=== PATIENT | male | born 1990 | race Caucasian/White ===

== ENCOUNTER 2022-05-29 20:41 | Emergency (ER) | payer BC, SELFPAY ==
[2022-05-29 20:42] VITALS: BP 149/100; PULSE 93; RESP 18; TEMP 35.8; O2SAT 97; BMI 30.1
--- NOTE | 2022-05-29 20:53 | CT_ITS ---
INDICATION: abdominal pain EXAMINATION: CT ABDOMEN AND PELVIS WITH CONTRAST - CT Abdomen And Pelvis W/ Contrast Injection TECHNIQUE: Helically acquired images were obtained of the abdomen and pelvis following IV contrast. A radiation dose optimization technique was used for this scan. IV Contrast dosage and agent: 100 cc Isovue-370 Oral contrast: None. COMPARISON: None. FINDINGS: LOWER CHEST: Lung bases are clear. No cardiomegaly or pericardial effusion. LIVER: Small cyst right lobe. No focal mass. GALLBLADDER AND BILIARY TREE: No calcified gallstones. No gallbladder distension or wall edema. No intra- or extrahepatic biliary ductal dilation. PANCREAS: No focal cystic or solid mass. SPLEEN: Normal size without focal cystic or solid mass. ADRENAL GLANDS: No nodules. KIDNEYS AND URETERS: Normal renal size and position. No hydronephrosis. PERITONEUM: No ascites or free air. BOWEL: Normal appendix. No stomach or bowel distension. No focal inflammatory change. LYMPH NODES: Scattered, moderately enlarged mid abdominal mesenteric lymph nodes. VESSELS: Aorta is non-dilated. URINARY BLADDER: Unremarkable. REPRODUCTIVE ORGANS: No pelvic masses. ABDOMINAL WALL: Small fat-containing umbilical hernia. BONES: Unremarkable. CT/Abdomen/Pelvis W IV Cont ONLY IMPRESSION: Scattered enlarged mesenteric lymph nodes, in the appropriate clinical setting these may indicate mesenteric adenitis. Otherwise no acute findings in the abdomen or pelvis. Electronically Signed: Juvenal Mendoza MD at 21:43 EST ,
--- NOTE | 2022-05-29 20:57 | ED.VIS.GI ---
HPI HPI - GI History of Present Illness Chief Complaint: Abd Pain Narrative Narrative: 32-year-old male presenting with periumbilical pain. He states this started around Thanksgiving and he has been a little queasy since then. He has not been nauseous however. He has been eating and drinking normally. He reports normal urine and stool. Is not had a fever. Today he notes that his discomfort was a little bit worse. It still around the umbilicus. He thought maybe he just had gas buildup and did some exercises. He then stretched. He states the pain is still there. Patient states that he looked up his symptoms on [facility] and is concerned he has appendicitis. PFSH PFSH Home Medications ascorbic acid (vitamin C) 25 mg tablet mg PO 05/29/22 [History Last Taken Unknown] cholecalciferol (vitamin D3) 125 mcg (5,000 unit) tablet (Vitamin D3) 125 mcg PO DAILY 05/29/22 [History Last Taken Unknown] naproxen 500 mg tablet (Naprosyn) 500 mg PO BID PRN pain #20 tabs 05/29/22 [Rx Last Taken Unknown] zinc 50 mg capsule 50 mg PO DAILY 05/29/22 [History Last Taken Unknown] Allergy/AdvReac Type Severity Reaction Status Date / Time remdesivir AdvReac Other Verified 05/29/22 20:42 Social History Smoking Status: Never smoker ROS ROS ED Constitutional Constitutional ED: Denies chills or fever(s) ENT ENT ED: Denies rhinorrhea or sore throat Cardiovascular Cardiovascular: Denies chest pain or palpitations Respiratory/Chest Respiratory/Chest: Denies cough or dyspnea Gastrointestinal Gastrointestinal: Reports abdominal pain; Denies constipation, diarrhea or nausea Genitourinary Genitourinary ED: Denies dysuria or hematuria Musculoskeletal Musculoskeletal: Denies arthralgias Integumentary Denies abscess or Abrasions Neurologic Neurologic: Denies headache(s) or paresthesias Psychiatric Psychiatric: Denies anxiety or depression EXAM Physical Exam Const Vital Signs: 05/29/22 20:42 Temperature 96.4 F L Temperature Source Temporal Pulse Rate 93 Respiratory Rate 18 Blood Pressure 149/100 H Blood Pressure Mean 116 Pulse Ox 97 Oxygen Delivery Method Room Air Positive well nourished General Appearance ED: NAD HEENT Reports moist mucous membranes Eyes PERRL and EOMs intact bilaterally Resp normal respiratory effort and clear to auscultation bilaterally Auscultation: Negative for rales, rhonchi or wheezes Cardio regular rate and regular rhythm GI Palpation: tender periumbilical Back/Spine no CVA tenderness Neuro CN's II-XII intact bilaterally and moves all extremities Sensorium / Orientation: alert Psych mental status grossly normal Skin no wounds MDM MDM MDM Narrative Medical decision making narrative: Patient presenting with abdominal pain around his umbilicus. This has been ongoing since . He is not had a fever. He states he is queasy but is not nauseous. No vomiting. No constipation or diarrhea. He is concerned for appendicitis. I obtained blood work and his CBC and CMP are normal. Lipase within normal limits. CT of the abdomen pelvis shows mesenteric adenitis. Patient is having relatively mild symptoms. I think he stable for discharge home. We will give him Naprosyn here. Follow-up was provided. Impression: 1. Abdominal pain 2. Mesenteric adenitis Lab Data Attestation: I reviewed the patient's lab results. Labs: Laboratory Results - last 24 hr 05/29/22 05/29/22 21:00 21:00 WBC 9.0 RBC 5.37 Hgb 16.0 Hct 45.4 MCV 84.5 MCH 29.8 MCHC 35.2 RDW Std Deviation 35.6 RDW Coeff of Demarcus 11.7 Plt Count 305 MPV 8.9 Immature Gran % (Auto) 0.200 Neut % (Auto) 60.1 Lymph % (Auto) 29.9 Lyman % (Auto) 8.6 Eos % (Auto) 0.8 Baso % (Auto) 0.4 Absolute Neuts (auto) 5.4 Absolute Lymphs (auto) 2.70 Nucleated RBC % 0 Sodium 141 Potassium 3.7 Chloride 106 Carbon Dioxide 30.0 Anion Gap 5 BUN 13 Creatinine 1.04 Estim Creat Clear Calc 109.85 Est GFR (MDRD) Af Amer 105 Est GFR (MDRD) Non-Af 87 BUN/Creatinine Ratio 12.5 Glucose 102 Calcium 9.7 Total Bilirubin 0.60 AST 19 ALT 55 Alkaline Phosphatase 81 Total Protein 7.8 Albumin 4.4 Globulin 3.4 Albumin/Globulin Ratio 1.3 Lipase 106 Radiography Diagnostic Testing: Clinical Impression(s) from Imaging Studies Abdomen/Pelvis CT 12/03/22 20:53 IMPRESSION: Scattered enlarged mesenteric lymph nodes, in the appropriate clinical setting these may indicate mesenteric adenitis. Otherwise no acute findings in the abdomen or pelvis. Electronically Signed: Juvenal Mendoza MD at 21:43 EST , Discharge Plan Triage Chief Complaint: Abd Pain Other Complaint: Nausea/Vomiting ED Provider: Abhishek Engle Dx/Rx/DC Orders Instructions: ED Adenitis, Mesenteric Prescriptions: New naproxen [Naprosyn] 500 mg tablet 500 mg PO BID PRN (Reason: pain) Qty: 20 0RF No Action Vitamin C 25 mg Tablet PO zinc 50 mg Capsule 50 mg PO DAILY cholecalciferol (vitamin D3) [Vitamin D3] 125 mcg (5,000 unit) Tablet 125 mcg PO DAILY Primary Care Provider: Care Physician,No Primary Referrals: Fast,Daja, DO [Med Staff - Traffic Monitor Specialist] - 3-5 Days NOT,DEFINED [Non-Staff] - Disposition Disposition: Home, Self Care
[2022-05-29 21:05] LABS: Absolute Neutrophil Count 5.4 X10^3/uL (2.0-7.7); Basophil# 0.04 X10^3/uL; Basophil% 0.4 % (0-1); Eosinophil# 0.07 X10^3/uL; Eosinophils% 0.8 % (0-5); Hematocrit 45.4 % (40-54); Lymphocyte % 29.9 % (19-41); Mean Corp Hgb Conc 35.2 g/dL (32-36); Mean Corpuscular Hgb 29.8 pg (27.0-32.0); Mean Corpuscular Volume 84.5 fL (80-94); Mean Platelet Vol. 8.9 fl (6.2-12.0); Monocyte# 0.78 X10^3/uL; Monocyte% 8.6 % (0-10); NRBC Flagged by Analyzer 0 % (0-5); Neutrophil # 5.41 X10^3/uL (2.7-7.7); Neutrophil % 60.1 % (47-70); Platelet Count 305 K/mm3 (150-450); RBC Distribution Width CV 11.7 % (11.6-14.6); RBC Distribution Width SD 35.6 fl (35.1-43.9); Red Blood Count 5.37 M/mm3 (4.6-6.2)
[2022-05-29 21:25] LABS: ALB/GLOB Ratio 1.3 RATIO (0.9-2.4); AST(SGOT) 19 U/L (15-37); Alanine Aminotransfer ALT/SGPT 55 U/L (16-61); Albumin, Serum 4.4 g/dL (3.2-5.0); Alkaline Phosphatase 81 U/L (45-117); Anion Gap 5 (5-15); BUN 13 mg/dL (7-18); BUN/Creat Ratio 12.5 RATIO (10-20); Calcium,Total 9.7 mg/dL (8.5-10.1); Chloride 106 mmol/L (98-107); Creatinine, Serum 1.04 mg/dL (0.70-1.30); EST Glomerular Filtration Rate 87 mL/min (>60); Est Glom Filt Rate - Afr Amer 105 mL/min (>60); Estimated Creatinine Clearance 109.85 ml/min; Globulin 3.4 g/dL (2.2-4.2); Glucose 102 mg/dL (74-106); Lipase 106 U/L (73-393); Potassium 3.7 mmol/L (3.5-5.1); Protein, Total 7.8 g/dL (6.4-8.2); Sodium Level 141 mmol/L (136-145)
== END 2022-05-29 22:40 | disposition home or self-care (01) ==
PROVIDERS: Emergency Provider Student in an Organized Health Care Education/Training Program; Visit Provider Student in an Organized Health Care Education/Training Program
DX: I88.0 Nonspecific mesenteric lymphadenitis (principal); R11.2 Nausea with vomiting, unspecified; R10.9 Unspecified abdominal pain
CPT/HCPCS: 74177; 80053; 83690; 85025; 99283; A4216

== ENCOUNTER 2023-03-10 11:15 | Emergency (ER) | payer BC, SELFPAY ==
[2023-03-10 11:17] VITALS: BP 162/96; PULSE 68; RESP 14; TEMP 35.9; O2SAT 93; BMI 32.1
--- NOTE | 2023-03-10 11:42 | CT_ITS ---
STUDY: CT ABDOMEN AND PELVIS WITHOUT CONTRAST REASON FOR EXAM: Male, 33 years old. Umbilical pain and nausea. RADIATION DOSAGE (If Supplied By Facility): CTDIvol = ( 14.45 ) mGy, DLP = ( 780.04 ) mGycm TECHNIQUE: Transaxial images were obtained from the dome of the diaphragm to the symphysis pubis without oral contrast, and without intravenous contrast. Sagittal and coronal images were reconstructed. Individualized dose optimization techniques were used for this CT. COMPARISON: Comparison is made with prior study May 29, 2022. FINDINGS: The visualized lung bases are unremarkable. The visualized portions of the heart are within normal limits. There is decreased attenuation of the liver consistent with steatosis. Stable 1.1 cm cyst in the region of the shilpa hepatis. Normal gallbladder and extrahepatic biliary system. Normal spleen. Normal pancreas. Normal bilateral adrenal glands. Normal right kidney. Normal left kidney. Normal visualized stomach. Normal small intestine. Normal colon. The appendix is visualized and appears normal. Normal abdominal aorta. Normal inferior vena cava. Normal retroperitoneum. Stable scattered small mesenteric lymph nodes. Normal urinary bladder. Normal abdominal wall. Normal osseous structures. CT/Abdomen/Pelvis without Cont IMPRESSION: Mild fatty infiltration of liver with a small cyst in the right hepatic lobe. Electronically Signed: Ector Morales MD at 12:11 EDT ,
--- NOTE | 2023-03-10 12:18 | EX.ED.DYSGE1 ---
HPI History of Present Illness Chief Complaint: Abd Pain Narrative Narrative: Patient presents with few month history of abdominal wall pain. He feels a little knot just above his umbilicus. No lower abdominal pain. No nausea vomiting fevers or chills. No urinary symptoms. PFSH PFSH Medical History no medical history Home Medications ascorbic acid (vitamin C) 25 mg tablet mg PO 05/29/22 [History Last Taken Unknown] cholecalciferol (vitamin D3) 125 mcg (5,000 unit) tablet (Vitamin D3) 125 mcg PO DAILY 05/29/22 [History Last Taken Unknown] naproxen 500 mg tablet (Naprosyn) 500 mg PO BID PRN pain #20 tabs 05/29/22 [Rx Last Taken Unknown] zinc 50 mg capsule 50 mg PO DAILY 05/29/22 [History Last Taken Unknown] Allergy/AdvReac Type Severity Reaction Status Date / Time remdesivir AdvReac Other Verified 03/10/23 11:16 Family History no significant family his Surgical History no surgical history Social History Smoking Status: Never smoker ROS ROS ED ROS Narrative Review of systems: General: No fever Cardiovascular: No chest pain Respiratory: No shortness of breath or cough Gastrointestinal: In HPI Genitourinary: No dysuria Musculoskeletal: Denies myalgias no difficulty with ambulation EXAM Physical Exam Narrative Exam Narrative: Physical exam General: Well nourished, Well developed, No Acute Distress Cardiovascular: Regular rate, Regular rhythm Respiratory: No distress, CTA bilaterally Abdomen: Soft, initially pinched the upper part of the umbilicus and the rest of the skin I can elicit his pain, he tells me he feels a knot in that region I cannot actually palpate any kind of umbilical hernia or periumbilical hernia or any nodule. Otherwise soft and nontender throughout the other parts of the abdomen with no guarding or rebound Back: Nontender, Normal Inspection. Negative for: CVA tenderness Const Vital Signs: 03/10/23 11:17 Temperature 96.6 F L Temperature Source Temporal Pulse Rate 68 Respiratory Rate 14 Blood Pressure 162/96 H Blood Pressure Mean 118 Pulse Ox 93 Oxygen Delivery Method Room Air MDM MDM MDM Narrative Medical decision making narrative: Initial worried was for hernia, was able to palpate it so was worried about it small 1, this is unfounded on CT. CT does show a liver cyst, this can be followed up outpatient. There is no signs of appendicitis, gallbladder disease, or any kind of colitis or bowel disease. Patient is reassured. I discharged him in stable condition. Radiography Diagnostic Testing: Clinical Impression(s) from Imaging Studies Abdomen/Pelvis CT 03/10/23 11:42 IMPRESSION: Mild fatty infiltration of liver with a small cyst in the right hepatic lobe. Electronically Signed: Ector Morales MD at 12:11 EDT , Discharge Plan Triage Chief Complaint: Abd Pain ED Provider: Andre Leslie Dx/Rx/DC Orders Clinical Impression: Abdominal wall pain, Abdominal pain Instructions: ED Pain, Acute, Uncertain Cause Prescriptions: No Action Vitamin C 25 mg Tablet PO zinc 50 mg Capsule 50 mg PO DAILY cholecalciferol (vitamin D3) [Vitamin D3] 125 mcg (5,000 unit) Tablet 125 mcg PO DAILY naproxen [Naprosyn] 500 mg tablet 500 mg PO BID PRN (Reason: pain) Qty: 20 0RF Primary Care Provider: Care Physician,No Primary Referrals: Care Physician,No Primary [Primary Care Provider] - 3-5 Days Disposition Disposition: Home, Self Care
--- NOTE | 2023-03-10 12:19 | CM.ED ---
Social Work Note Referral Source: case find Referral Reason: no PCP SW met with patient and introduced herself and role as [facility] Director Economic. Patient was seated on hospital bed and agreeable to speak with SW with guest present. SW inquired about patient's insurance and current PCP. Patient verified insurance and reports recently establishing with a PCP with their first appointment scheduled for April. Patient accepted a list of local PCPs in network with patient's insurance and accepting new patients to review. Patient voiced no other needs at this time. SW remains available if needs arise. Kalyn Stubbs MSW, [facility]
== END 2023-03-10 12:39 | disposition home or self-care (01) ==
PROVIDERS: Emergency Provider Emergency Medicine; Visit Provider Emergency Medicine
DX: R10.9 Unspecified abdominal pain (principal); K76.89 Other specified diseases of liver
CPT/HCPCS: 74176; 99282

== ENCOUNTER 2023-03-31 19:33 | Emergency (ER) | payer BC, SELFPAY ==
[2023-03-31 19:34] VITALS: BP 135/90; PULSE 76; RESP 18; TEMP 36.7; O2SAT 99; BMI 32.4
[2023-03-31 19:59] LABS: Absolute Lymphocyte Count 2.56 X10^3/uL (0.83-4.51); Absolute Neutrophil Count 4.4 X10^3/uL (2.0-7.7); Basophil# 0.03 X10^3/uL; Basophil% 0.4 % (0-1); Eosinophil# 0.15 X10^3/uL; Eosinophils% 1.9 % (0-5); Hematocrit 49.9 % (40-54); Hemoglobin 17.3 g/dL (13.0-16.5); Lymphocyte # 2.56 X10^3/ul (0.83-4.51); Lymphocyte % 32.7 % (19-41); Mean Corp Hgb Conc 34.7 g/dL (32-36); Mean Corpuscular Hgb 29.5 pg (27.0-32.0); Mean Corpuscular Volume 85.2 fL (80-94); Mean Platelet Vol. 9.4 fl (6.2-12.0); Monocyte# 0.63 X10^3/uL; Monocyte% 8.1 % (0-10); NRBC Flagged by Analyzer 0 % (0-5); Neutrophil # 4.43 X10^3/uL (2.7-7.7); Neutrophil % 56.6 % (47-70); Platelet Count 316 K/mm3 (150-450); RBC Distribution Width CV 11.7 % (11.6-14.6); RBC Distribution Width SD 35.9 fl (35.1-43.9); Red Blood Count 5.86 M/mm3 (4.6-6.2); White Blood Count 7.8 K/mm3 (4.4-11.0)
[2023-03-31 20:21] LABS: ALB/GLOB Ratio 1.2 RATIO (0.9-2.4); AST(SGOT) 27 U/L (15-37); Alanine Aminotransfer ALT/SGPT 66 U/L (16-61); Albumin, Serum 4.4 g/dL (3.2-5.0); Alkaline Phosphatase 88 U/L (45-117); Anion Gap 6 (5-15); BUN 15 mg/dL (7-18); Calcium,Total 9.1 mg/dL (8.5-10.1); Chloride 105 mmol/L (98-107); Creatinine, Serum 0.94 mg/dL (0.70-1.30); EST Glomerular Filtration Rate 97 mL/min (>60); Est Glom Filt Rate - Afr Amer 118 mL/min (>60); Estimated Creatinine Clearance 113.25 ml/min; Globulin 3.6 g/dL (2.2-4.2); Glucose 94 mg/dL (74-106); Potassium 3.9 mmol/L (3.5-5.1); Sodium Level 137 mmol/L (136-145)
--- NOTE | 2023-03-31 20:24 | ED.VIS.GI ---
HPI HPI - GI History of Present Illness Chief Complaint: Abd Pain Detail of Chief Complaint: Abdominal pain Informant: patient Narrative Narrative: Patient presents with abdominal pain over 6 weeks now. Patient has been seen for this in the emergency department and had a CT scan in March 10 did not show any acute disease process. Patient complains of pain in the right upper quadrant and sometimes in the right lower quadrant. 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 Patient now complaining of pain worse with movement and with taking deep breath. He denies any chest pain. No history of PE or DVT. He denies any blood in his stool or black tarry stool. He has had no fever. He denies vomiting. PFSH PFSH Medical History no medical history Home Medications NK 03/31/23 [History Last Taken Unknown] Allergy/AdvReac Type Severity Reaction Status Date / Time remdesivir AdvReac Other Verified 03/31/23 19:36 Family History no significant family his Surgical History no surgical history Social History Smoking Status: Never smoker ROS ROS ED Review of Systems ROS Unobtainable: other Constitutional Constitutional ED: Reports lethargy; Denies chills, fever(s), sweats or weight loss Eyes Eyes: Denies blurry vision, change in vision or diplopia ENT ENT ED: Denies rhinorrhea or sore throat Cardiovascular Cardiovascular: Denies chest pain, orthopnea or racing heartbeat Respiratory/Chest Respiratory/Chest: Denies cough, dyspnea, dyspnea on exertion, orthopnea or sputum Gastrointestinal Gastrointestinal: Reports abdominal pain; Denies diarrhea, nausea or vomiting Genitourinary Genitourinary ED: Denies dysuria, hematuria or urinary frequency Musculoskeletal Musculoskeletal: Denies arthralgias, back pain, myalgias or neck pain Integumentary Denies abscess, Abrasions or rash Neurologic Neurologic: Denies headache(s) or weakness Psychiatric Psychiatric: Denies anxiety, depression or suicidal thoughts Endocrine Endocrinology: Denies polydipsia, polyphagia or polyuria Hematologic/Lymphatic Hematologic/Lymphatic: Denies easy bleeding, easy bruising or lymphadenopathy Allergic/Immunologic Allergic/Immunologic ED: Denies mouth swelling, tongue swelling or urticaria EXAM Physical Exam Const Vital Signs: 03/31/23 19:34 03/31/23 22:19 Temperature 98.1 F Temperature Source Temporal Pulse Rate 76 Respiratory Rate 18 16 Blood Pressure 135/90 H Blood Pressure Mean 105 Pulse Ox 99 Oxygen Delivery Method Room Air Positive well nourished and well developed General Appearance ED: well developed and NAD HEENT Reports TM's clear and moist mucous membranes normocephalic and atraumatic; Negative for trauma or tenderness Tympanic Membrane ED: Yes TM's clear Eyes PERRL and EOMs intact bilaterally General Eye ED: Negative for pale conjunctiva or scleral icterus Neck no lymphadenopathy, supple and no JVD General: Negative for tenderness Chest Wall inspection of chest normal and palpation of chest normal Chest: Negative for tenderness Resp normal respiratory effort and clear to auscultation bilaterally Effort and Inspection: Negative for respiratory distress or pain with movement Auscultation: Negative for rhonchi, wheezes or diminished lung sounds Cardio regular rate, regular rhythm, S1 normal heart sound, S2 normal heart sound and no murmurs Peripheral Pulses: pulses 2+ throughout GI normal to inspection, nondistended, normoactive bowel sounds, soft to palpation, non-distended and no masses GI Narrative: Tenderness over right upper quadrant with some mild guarding. Negative Mitchell sign. There is no rebound, rigidity, or pedal signs. No significant tenderness of the right lower quadrant. No hernias or masses palpated. Back/Spine no CVA tenderness and no thoracic nor lumbar tenderness Extremity normal to inspection General Extremety ED: Negative for edema General Extremity: Negative for edema Neuro oriented x3, CN's II-XII intact bilaterally, no sensory deficits noted and gait normal Sensorium / Orientation: awake, alert, oriented to person, oriented to place and oriented to time Motor Exam: strength 5/5 throughout and strength abnormal Psych mental status grossly normal Skin no rashes or lesions noted and no wounds MDM MDM MDM Narrative Medical decision making narrative: Patient with ongoing abdominal pain for several months. Continues to have right upper quadrant pain. Will obtain basic labs and gallbladder ultrasound. Gallbladder ultrasound was read as normal. Lab work-up showed a normal white count of 7.8 with hemoglobin of 17 and platelet count of 316. D-dimer was less than 0.27. Chemistries unremarkable. LFTs showed a minimally elevated ALT of 66 with a normal alk phos of 88. Urinalysis was normal. CT scan of the abdomen pelvis ordered with IV contrast and p.o. contrast. Official results pending and care turned over to evening physician awaiting results. If CT is normal will refer patient to general surgery for follow-up. Patient might require further outpatient work-up such as possibly HIDA scan or EGD or colonoscopy. Lab Data Attestation: I reviewed the patient's lab results. Labs: Laboratory Results - last 24 hr 03/31/23 03/31/23 03/31/23 19:45 20:44 21:00 WBC 7.8 RBC 5.86 Hgb 17.3 H Hct 49.9 MCV 85.2 MCH 29.5 MCHC 34.7 RDW Std Deviation 35.9 RDW Coeff of Demarcus 11.7 Plt Count 316 MPV 9.4 Immature Gran % (Auto) 0.300 Neut % (Auto) 56.6 Lymph % (Auto) 32.7 Esmeralda % (Auto) 8.1 Eos % (Auto) 1.9 Baso % (Auto) 0.4 Absolute Neuts (auto) 4.4 Absolute Lymphs (auto) 2.56 Nucleated RBC % 0 D-Dimer Quant (PE/DVT) < 0.27 L Sodium 137 Potassium 3.9 Chloride 105 Carbon Dioxide 26.0 Anion Gap 6 BUN 15 Creatinine 0.94 Estim Creat Clear Calc 113.25 Est GFR (MDRD) Af Amer 118 Est GFR (MDRD) Non-Af 97 BUN/Creatinine Ratio 16.0 Glucose 94 Calcium 9.1 Total Bilirubin 0.70 AST 27 ALT 66 H Alkaline Phosphatase 88 Total Protein 8.0 Albumin 4.4 Globulin 3.6 Albumin/Globulin Ratio 1.2 Urine Color Yellow Urine Clarity Clear Urine pH 6.0 Ur Specific [place] 1.020 Urine Protein 15 H Urine Glucose (UA) Normal Urine Ketones 15 H Urine Occult Blood 10 H Urine Nitrite Negative Urine Bilirubin Negative Urine Urobilinogen Normal Ur Leukocyte Esterase Negative Urine RBC 0 SEEN Urine WBC 0-5 SEEN Ur Squamous Epith Cells 0 SEEN Urine Bacteria 0 SEEN Urine Mucus 0 SEEN Radiography Diagnostic Testing: Clinical Impression(s) from Imaging Studies Gallbladder Ultrasound 03/31/23 20:30 IMPRESSION: 1. No acute findings. 2. Hepatic steatosis. Electronically Signed: Courtney Mulligan MD at 21:55 EDT Reading Location ID and State: [id number] / Tel , Service support , Discharge Plan Triage Chief Complaint: Abd Pain ED Provider: Shalom Schroeder Dx/Rx/DC Orders Clinical Impression: Abdominal pain Instructions: ED Abdominal Pain Unkn Cause Male... Prescriptions: No Action NK Primary Care Provider: Care Physician,No Primary Referrals: Margarito Maciel MD [Med Staff - Active Staff] - 3-5 Days Care Physician,No Primary [Primary Care Provider] - Disposition Disposition: Home, Self Care
--- NOTE | 2023-03-31 20:30 | US_ITS ---
EXAM: US ABDOMEN LIMITED, RIGHT UPPER QUADRANT CLINICAL INDICATION: abdominal pain TECHNIQUE: Real-time ultrasound of the right upper quadrant with image documentation. COMPARISON: No relevant prior studies available. FINDINGS: LIVER: Liver is normal in size measuring 15.7 cm. Echogenicity is increased consistent with fatty infiltration. 1.2 x 0.9 cm hepatic cyst. No intrahepatic biliary ductal dilation. GALLBLADDER: Unremarkable. No shadowing gallstone. No gallbladder wall thickening is demonstrated. No pericholecystic fluid. Negative sonographic Mitchell''s sign. COMMON BILE DUCT: Unremarkable as visualized. The proximal common bile duct is within normal limits for the patient''s age. PANCREAS: Pancreas is not seen due to bowel gas. RIGHT KIDNEY: Right kidney is normal in size and echogenicity measuring 10.1 x 5.7 x 5.9 cm. Renal cortical thickness is normal. No mass, stone, or hydronephrosis. US/Gallbladder IMPRESSION: 1. No acute findings. 2. Hepatic steatosis. Electronically Signed: Courtney Mulligan MD at 21:55 EDT Reading Location ID and State: [id number] / Tel , Service support ,
[2023-03-31 21:15] LABS: Bacteria 0 SEEN /hpf (None Seen); Mucous, Urine 0 SEEN /hpf (<or=2+); Red Blood Cells-Urine 0 SEEN /hpf (0-5); Squamous Epithelial Cells - UA 0 SEEN /hpf (0-5)
[2023-03-31 21:21] LABS: Glucose, Dipstick Normal (Normal); Ketone-Dipstick 15 mg/dl (Negative); Leukocyte Esterase-Dipstick Negative /ul (Negative); Nitrite-Dipstick Negative (Negative); Occult Blood-Urine 10 /ul (Negative); Protein-Dipstick 15 mg/dl (Negative); Urine Bilirubin Dipstick Negative (Negative); Urine Urobilinogen Normal (Normal)
[2023-03-31 21:22] LABS: Color, Urine Yellow (Yellow); Urine Clarity Clear (Clear)
[2023-03-31 21:25] LABS: D-Dimer Quantitative (DVT/PE) < 0.27 FEU/ug/m (0.27-0.49)
[2023-03-31 21:41] LABS: White Blood Cells 0-5 SEEN /hpf (0-5)
--- NOTE | 2023-03-31 22:01 | CT_ITS ---
INDICATION: abdominal pain EXAMINATION: CT ABDOMEN AND PELVIS WITH CONTRAST - CT Abdomen And Pelvis W/ Contrast Injection TECHNIQUE: Helically acquired images were obtained of the abdomen and pelvis following IV contrast. A radiation dose optimization technique was used for this scan. IV Contrast dosage and agent: 100 cc Isovue-370 Oral contrast: Yes. COMPARISON: 03/10/2023 FINDINGS: LOWER CHEST: Lung bases are clear. No cardiomegaly or pericardial effusion. LIVER: Stable 11 mm cyst. No concerning focal mass. GALLBLADDER AND BILIARY TREE: No calcified gallstones. No gallbladder distension or wall edema. No intra- or extrahepatic biliary ductal dilation. PANCREAS: No focal cystic or solid mass. SPLEEN: Normal size without focal cystic or solid mass. ADRENAL GLANDS: No nodules. KIDNEYS AND URETERS: Normal renal size and position. No hydronephrosis. PERITONEUM: No ascites or free air. BOWEL: Normal appendix. No stomach or bowel distension. No focal inflammatory change. LYMPH NODES: Stable scattered minimally enlarged mesenteric lymph nodes. VESSELS: Aorta is non-dilated. URINARY BLADDER: Unremarkable. REPRODUCTIVE ORGANS: No pelvic masses. ABDOMINAL WALL: Small fat-containing umbilical hernia. BONES: Unremarkable. CT/Abdomen/Pelvis WITH Contrast IMPRESSION: No acute findings in the abdomen or pelvis. No significant change from the prior study. Electronically Signed: Juvenal Mendoza MD at 0:04 EDT ,
[2023-03-31 22:19] VITALS: RESP 16
== END 2023-04-01 00:58 | disposition home or self-care (01) ==
PROVIDERS: Emergency Provider Emergency Medicine; Visit Provider Emergency Medicine
DX: R10.11 Right upper quadrant pain (principal)
CPT/HCPCS: 74177; 76705; 80053; 81001; 85025; 85379; 99283; Q9967; A4216

== ENCOUNTER → 2023-04-06 | Outpatient (CLI) | payer BC, SELFPAY | END | disposition home or self-care (01) | LOC: LABSPEC 16:48 | PROVIDERS: Referring Provider Surgery; Visit Provider Surgery | DX: K42.9 Umbilical hernia without obstruction or gangrene (principal) | CPT/HCPCS: 87081 ==

== ENCOUNTER 2023-04-28 10:04 | Day surgery (SDC) | payer BC, SELFPAY ==
[2023-04-28] MEDS: Lactated Ringers 1,000 ML 15 ML IV (11:04)
[2023-04-28 11:06] VITALS: BP 155/85; PULSE 90; RESP 18; TEMP 36.3; O2SAT 100; BMI 30.5
[2023-04-28] MEDS: Cefazolin 2 GM in 0.9% Normal Saline (100mL Bag) 100 ML IV (11:30)
--- NOTE | 2023-04-28 11:36 | PCM.HP.BLA ---
History and Physical Date of Admission: 04/28/23 Date of Service: 04/06/23 MR#: [id number] Acct: [id number] Name: MEME PHAN Rep #: [id number] : 1990 Provider: Dr. Margarito Maciel MD Age/Sex: 33/M Location: [facility] Status: Signed Intake Vital Signs 03/31/2319:34 04/06/2310:39 Height 5 ft 10 in 5 ft 10 in Weight: 224 lb 8 oz BMI 32.2 BP 117/71 Blood Pressure Location Rt brachial Position Sitting Respiration 17 Pulse 64 Pulse Source Monitor Temp 97.3 F L Temp Source Temporal Pulse Oximetry (%) 97 Oxygen Delivery Method room air Intake Visit Reasons: [facility] ER 03/31 ABD PAIN Chief Complaint: w/c ER 03/31 abd pain Is patient in pain?: Yes Allergies remdesivir Adverse Reaction (Verified 04/06/23 10:40) Other Medications NK 03/31/23 [History Confirmed 04/06/23] [facility] Medical History no medical history Social History (Updated 04/06/23 @ 10:39 by Vivian Delacruz) Smoking Status: Never smoker alcohol intake: current alcohol intake frequency: holidays/special occasions only substance use type: does not use HPI HPI HPI: Patient is a 33-year-old male who presents for abdominal pain over the past 6 weeks. This finding was first noticed by patient. He has tried to keep a journal of his symptoms but has been frustrated with the lack of progress and coming today because after 2 separate ER visits and abdominal imaging. Patient is able to recall that in July 2021 he pulled something in his abdomen while working out and suspected this was simply a pulled muscle as he did not thereafter experience any bulging or ongoing pain. However, since that time he finds abdominal discomfort with certain activities and working out. He notes that his pain seems to radiate from his umbilicus up to his sternum. He initially believed that the pain was brought on by eating and so he has worked to eat light meals and cut out all sugar and caffeine. He states that the pain is currently bearable but feels as though something is still missing. He has noted some occasional associated nausea but no vomiting with the discomfort. He has not noticed any association with time of day. He reports that emergency medicine suggested he may have an umbilical hernia. He also offers that from the ages of [age] he dealt with a diagnosis of lactose intolerance but seem to grow out of this. He also reports a history of some reflux and heartburn in relation to coffee, but otherwise is not regularly bothered by the symptoms. He has no prior history of abdominal surgery. He does relate that he had some anesthesia problems during a wart removal in 2012 and woke up unable to breathe. This has been troubled for any potential surgical intervention he may require with his current complaint. 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 ROS General General: Yes weight change; No appetite, fatigue, colon cancer, breast cancer or weakness HEENT HEENT: No difficulty swallowing, eye injury, eye surgery, swollen glands or hoarseness Endo Endocrine: No thyroid disease, diabetes mellitus, thyroid cancer, Hair loss, heat intolerance or cold intolerance Skin Skin: No rash or changing moles Musc Musculoskeletal: No back problems, arthritis, rheumatoid arthritis, gout or joint pain Cardio Cardiovascular: No murmur, pacemaker, heart disease, atrial fibrillation, high blood pressure, heart attack, heart stent, palpitations, shortness of breat with exertion or chest pain Psych Psychiatric: No depression, anxiety or hearing voices Resp Respiratory: No shortness of breath, No sleep apnea, No cough, No COPD, No asthma, No emphysema and No wheezing Gastro Gastrointestinal: Yes abdominal pain, Yes nausea or vomiting, No diarrhea, No constipation, No blood in stool, No acid reflux, No hemorrhoids, No ulcers, No gallbladder problem and No black,tarry stools Garry Hematologic: No blood thinners, No blood disorders, No bleeding, No anemia and No blood clots Neuro Neurologic: No system reviewed and no additional complaints, except as documented, No as per HPI, No abnormal gait, No abnormal hearing, No abnormal movements, No abnormal speech, No behavioral changes, No burning sensations, No confusion, No convulsions, No disequilibrium, No dizziness, No localized weakness, No frequent falls, No headache(s), No lack of coordination, No loss of vision, No memory loss, No numbness, No other visual disturbances, No radicular pain, No restless legs, No sensory deficit, No syncope, No tingling, No tremor(s), No weakness and No other Exam Const General: cooperative, healthy appearing and anxious Orientation: alert, awake and oriented x3 Resp Effort & Inspection: normal respiratory effort GI Inspection: non-distended Other: Hirsute, overweight, no scars, soft, tender to palpation with approximately 1 cm fascial defect of the umbilicus containing fat. Patient reports that this tenderness does largely reproduce his prior symptoms. He otherwise is without tenderness to palpation over the 4 abdominal quadrants. Assessment and Plan Assessment and Plan (1) Umbilical hernia: Status: Acute Comment: This is a 33-year-old male who complains of approximately 6 weeks of abdominal pain radiating from his umbilicus to his sternum and laterally in both directions. He notes that his symptoms are definitely provoked with activity and seem to stem from some exertional activity undertaken July 2021 when he thought he pulled something. He has been to the emergency department on [address] imaging and gallbladder ultrasound were performed. His gallbladder ultrasound was normal without findings of gallstones, however, his CT of the abdomen and pelvis did demonstrate a small fat-containing umbilical hernia. This measures approximately 1.2 cm in diameter I suspect this latter issue is the cause of his complaints based on his history and the fact that his symptoms are largely reproduced on exam with palpation of this area. Therefore, it is my recommendation to proceed with an open umbilical hernia repair with mesh at his convenience. I do not find him to be at any significant risk for bowel incarceration or bowel obstruction given the small size of the fascial defect, but do believe that his omental fat is becoming intermittently incarcerated and causing pain with activity. I have stressed that he needs to find a time in his work schedule to dedicate 5 weeks to activity restrictions and at least 2 weeks to refrain from air travel on the account of his increased DVT risk postoperatively. Plan: ? Follow-up MRSA swab of the nares ? Arrange for operative date for open umbilical hernia repair with mesh at patient's convenience. Patient is aware that he should expect activity restrictions 5 weeks postop and no air travel x2 weeks postop I have examined the patient and the H&P has been reviewed. There are no clinical changes since date of exam. Patient confirms that he has had persistent diffuse tenderness about his umbilicus. We clarified details regarding his procedure as well as postprocedural lifting expectations. 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 Lastly we discussed wound care management with both patient and his father who is present in the room. Patient confirms that this has been an exhaustive review of the relevant information denies any further questions. Proceed to the operating room for open umbilical hernia repair with mesh as discussed above.
[2023-04-28] MEDS: Bupivacaine 0.5% PF 10 ML VIAL (12:28)
--- NOTE | 2023-04-28 12:45 | PCM.OPRPT ---
Report of Operation Date of Procedure: 04/28/23 Pre-Operative Diagnosis: Umbilical hernia Post-Operative Diagnosis: Umbilical hernia containing incarcerated fat Surgery/Procedure Performed:: Open umbilical hernia repair with mesh placement Description of Surgical Findings:: ? Fascial defect of 1 cm Surgeon: Margarito Maciel manager product support: Shasta Marquez Type of Anesthesia: General/Supplemental Anesthesiologist: Ferny Wilson Specimen's removed: None Description of Procedure: After appropriate identification in the preoperative holding area patient was brought to the operating room where he was positioned supine on the operating room table. Preoperative antibiotics were being administered during this time. Patient was then induced with a general anesthetic and is abdomen was prepped and draped in usual sterile fashion. A formal timeout was conducted to confirm both patient and the procedure amongst those present. Observing the patient's prior scars, I elected to use a infraumbilical incision line and performed a local block along this tissue using quarter percent Marcaine. This incision was made sharply and deepened down through the dermis and subcu tissue with use of electrocautery. I used a hemostat to bluntly dissect out and encircled the umbilical stalk and took great care to avoid injury to the overlying skin. Gradually this was freed from the underlying scar and soft tissue attachments until we were able to visualize patient's fascial defect. This measured 1 cm x 1 cm round. As the fascia was completely cleared of overlying attachments, I also tried to clear any adherent omentum to the inner diameter of this fascial defect using sharp dissection. Through this dissection, I circumferentially freed the hernia contents from the edge of the fascia. For the closure of this fascial defect, I elected to incorporate a mesh closure. A 4.[address] hernia patch was used for this purpose. The mesh was placed through the hernia opening in a folded conformation and then allowed to assume a flat position under the fascia. The tails of the mesh were split and were tacked in the fascia laterally using 2-0 Prolene. Then the fascial defect was closed transversely with 0 Ethibond sutures in an interrupted fashion using a [id number] technique. This resulted in a nice closure of the fascial defects with a mesh underlay. The skin of the umbilical stalk was tacked down to the fascia with a interrupted 3-0 Vicryl. The same 3-0 Vicryl was used to perform a number of interrupted sutures dermis to reapproximate the wound and close down some of the space from our dissection down to the fascia. Lastly, a 4-0 Monocryl was used to close the skin in a running subcuticular technique. Steri's were applied and a rolled Telfa was placed into the umbilical concavity. A OpSite dressing was placed atop this and the area around the Telfa roll was evacuated to provide a bit of a compressive dressing. This concluded the formal portion of the case and the patient was allowed to awaken from general anesthetic. He was taken to PACU for ongoing recovery. Complications None
--- NOTE | 2023-04-28 12:51 | DCINST_ITS ---
Discharge Instructions Diet Discharge Diet: No restrictions Activity May shower in (days): 2 Lifting Restrictions: No lifting greater than 10 pounds x 5 weeks postop Dressing / Incision Call your doctor if your incision/area has: Sudden Increased Bleeding, Increased Pain/ Swelling, Increased Redness, Foul Smelling Discharge and Swelling at the incision site Call your doctor if you observe: Fever of 101 or Higher Remove Dressing in: 5 days Cleanse incision/area with: Soap & Water Follow Up Care Please Follow Up With: Margarito Maciel MD When: 10 to 14 days postop Test Results: Test results from this visit will be discussed in further detail at your follow- up appointment, if applicable. Discharge Plan Admission Primary Reason for Your Visit: umbilical hernia repair Attending Provider: Margarito Maciel Primary Care Provider: Care Physician,Devika Primary Discharge Orders/Prescriptions Prescriptions: New oxycodone 5 mg tablet 5 mg PO Q6H PRN (Reason: pain) 3 Days Qty: 10 0RF Referrals / Follow Up: Care Physician,No Primary [Primary Care Provider] - Disposition Disposition (needs filled in before D/C Order can be placed): Home, Self Care
[2023-04-28 12:52] VITALS: BP 100/51; BP 155/85; PULSE 69; RESP 16; TEMP 36.1; O2SAT 99
[2023-04-28 13:00] VITALS: BP 155/85; BP 97/54; PULSE 65; RESP 16; O2SAT 99
[2023-04-28 13:15] VITALS: BP 122/58; BP 155/85; PULSE 85; RESP 16; O2SAT 97
[2023-04-28 13:30] VITALS: BP 124/77; BP 155/85; PULSE 82; RESP 16; TEMP 35.8; O2SAT 99
[2023-04-28] MEDS: Acetaminophen 325 MG Tablet 650 MG PO (15:00)
[2023-04-28 16:08] VITALS: BP 112/60; BP 155/85; PULSE 73; RESP 16; TEMP 36.1; O2SAT 100
== END 2023-04-28 16:13 | disposition home or self-care (01) ==
LOC: SDC 10:08 → AC 10:09
PROVIDERS: Referring Provider Surgery; Visit Provider Surgery
PROC: (CPT 49592; principal; 2023-04-28 11:25)
DX: K42.0 Umbilical hernia with obstruction, without gangrene (principal)
CPT/HCPCS: 49592; J7120; C1781; J2405

== ENCOUNTER → 2023-05-18 | Outpatient (CLI) | payer BC, SELFPAY ==
--- NOTE | 2023-05-18 13:05 | RAD_ITS ---
STUDY: X-RAY - LEFT WRIST REASON FOR EXAM: Male, 33 years old. Wrist pain. TECHNIQUE: view(s) of the wrist were obtained. COMPARISON: None. FINDINGS: Normal visualized distal radius and ulna. Normal radiocarpal articulation. Normal distal radioulnar articulation. Normal carpal bones. Mild arthrosis of the radial carpal row. Mild arthrosis of the first CMC joint. Normal second through fifth carpometacarpal articulations. Normal visualized metacarpal bones. Normal soft tissues. 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 No other abnormality. Electronically Signed: Ruben Garcia MD at 13:23 [facility] ,
== END | disposition home or self-care (01) ==
LOC: RAD 13:00
PROVIDERS: PCP Internal Medicine; Referring Provider Internal Medicine; Visit Provider Internal Medicine
DX: M25.532 Pain in left wrist (principal)
CPT/HCPCS: 73110

== ENCOUNTER → 2023-06-14 | Outpatient (CLI) | payer BC, SELFPAY ==
--- NOTE | 2023-06-14 12:27 | CT_ITS ---
STUDY: CT ABDOMEN AND PELVIS WITH CONTRAST REASON FOR EXAM: Male, 33 years old. Abdominal pain -- s/p umbilical hernia repair 04/28/23 RADIATION DOSAGE (If Supplied By Facility): CTDIvol = ( 13.54 ) mGy, DLP = ( 926.42 ) mGycm TECHNIQUE: Transaxial images were obtained from the dome of the diaphragm to the symphysis pubis with oral contrast. Oral and amp; IV Readi-CAT and amp; 100mL Isovue-300 was administered. Sagittal and coronal images were reconstructed. Individualized dose optimization techniques were used for this CT. COMPARISON: Comparison is made with prior study March 31, 2023. FINDINGS: The visualized lung bases are unremarkable. The visualized portions of the heart are within normal limits. There is decreased attenuation of the liver consistent with steatosis. Stable 1 cm cyst in the central portion of the right lobe of the liver. Normal gallbladder and extrahepatic biliary system. Normal spleen. Normal pancreas. Normal bilateral adrenal glands. Normal right kidney. Normal left kidney. Normal visualized stomach. Normal small intestine. Normal colon. The appendix is visualized and appears normal. Normal abdominal aorta. Normal inferior vena cava. Normal retroperitoneum. Normal urinary bladder. Postsurgical changes are seen at the level of the umbilicus and compared with prior hernia repair. Normal osseous structures. CT/Abdomen/Pelvis WITH Contrast IMPRESSION: Normal enhanced CT of the abdomen and pelvis. Electronically Signed: Ector Morales MD at 13:35 EST ,
== END | disposition home or self-care (01) ==
LOC: CT 12:26
PROVIDERS: PCP Internal Medicine; Referring Provider Surgery; Visit Provider Surgery
DX: R10.9 Unspecified abdominal pain (principal)
CPT/HCPCS: 74177; Q9967

== ENCOUNTER → 2023-06-24 | Outpatient (CLI) | payer BC, SELFPAY ==
--- NOTE | 2023-06-24 07:43 | NM_ITS ---
CLINICAL: 33-year-old male with history of abdominal pain. RADIONUCLIDE HEPATOBILIARY SCINTIGRAPHY COMPARISON: Gallbladder ultrasound report 03/31/2023, CT of the abdomen-pelvis report 06/14/2023 FINDINGS: Following the intravenous administration of 5.3 mCi of 99m Tc Mebrofenin, hepatobiliary images reveal: 1. Relatively prompt and homogeneous radiopharmaceutical concentration is noted by a normal sized liver. No parenchymal defects are identified. 2. Gallbladder activity is identified at 45 minutes post radiopharmaceutical administration. 3. Small intestinal tract is observed at 30 minutes following tracer injection. 4. Washout of the radiopharmaceutical by the hepatic parenchyma appears qualitatively normal. Cholecystokinin (0.02 ug/kg) was administered intravenously over a 30-minute period. The post CCK gallbladder ejection fraction calculated at 20 minutes following Cholecystokinin administration was noted to be 15.0 % (normal greater than 35%). NM/Hepatobilliary Img w/Pharm Int IMPRESSION: 1. ABNORMAL 99m Tc Mebrofenin hepatobiliary imaging examination with Cholecystokinin. A. A gallbladder ejection fraction calculated to be less than 35% following the administration of Cholecystokinin is consistent with the presence of functional hepatobiliary disease (gallbladder and/or sphincter of Oddi dyskinesia) and/or organic hepatobiliary disease (chronic acalculous cholecystitis and/or cystic duct syndrome) in patients with intermediate to high pretest probabilities of hepatobiliary illness. (Justin Milner et al, Journal of Nuclear Medicine 32:1695, 1991). Electronically Signed: Shane Salmon DO at 10:35 EST ,
--- OUTSIDE RECORDS SUMMARY | 2023-06-24 07:47 | XMS RPT_ITS | CCD ---
Author Name Unknown Address [address] [place] [address] Organization [facility] Care Team Providers Care Filter Helper Name Role Phone Nonstaff , [facility] Primary Care Provider [phone] Unknown, Referring Provider Unavailable Unav ailable Unavailable Unavailable ALEX KAY Referring Unavailable Unavailable Primary Care Provider Unavailabl e Allergies Allergy Classification Reported Allergen(s) Allergy Type Date of Onset Reaction(s) Facility (1 source) remdesivir Drug Allergy 05-20-2021 Other - comment required [facility] Medications Current Medications Medication Drug Class(es) Dates Sig (Normalized) Sig (Original) acetaminophen 325 mg oral tablet (1 source) Start: 05-20-2021 take 1 tablet by mouth every six hours as needed acetaminophen (TYLENOL) tablet 650 mg albuterol (PROVENTIL) 90 mcg/actuation inhalation aerosol 2 Puff (1 source) Start: 05-21-2021 albuterol (PROVENTIL) 90 mcg/actuation inhalation aerosol 2 Puff albuterol 90 mcg/actuation Inhalation aerosol (2 sources) Start: 05-24-2021 End: 05-24-2021 take 2 puff(s) by inhalation every six hours as needed albuterol 90 mcg/actuation Inhalation aerosol Inhale 2 Puffs as directed every 6 hours as needed for Shortness of Breath 1 Each 0 05/24/2021 05/24/2021 Discontinued (Reorder) Completed/Discontinued Medications Medication Drug Class(es) Dates Sig (Normalized) Sig (Original) [id number] 60 actuat albuterol 0.09 mg/actuat metered dose inhaler (6 sources) beta2-Adrenergic Agonist Start: 05-24-2021 take 2 puff(s) by inhalation every six hours as needed Albuterol Sulfate HFA 108 (90 Base) MCG/ACT Inhalation Aerosol Solution INHALE 2 PUFFS DIRECTED EVERY 6 HOURS NEEDED FOR SHORTNESS OF BREATH Quantity: 8 Refills: 0 Ordered: 24-May-2021 DO Start : 24-May-2021 Active albuterol per guideline (1 source) Start: 05-20-2021 Inhalation, DO NOT DISPENSE, Starting on Tue05/20/21 at 2032, Until Discontinued, other albuterol/ipratropi um per guideline with albuterol prn for triage 4 & 5 (1 source) Start: 05-20-2021 Inhalation, DO NOT DISPENSE, Starting on Tue05/20/21 at 2032, Until Discontinued, other calcium chloride 0.0014 meq/ml / potassium chloride 0.004 meq/ml / sodium chloride 0.103 meq/ml / sodium lactate 0.028 meq/ml injectable solution (2 sources) Start: 05-21-2021 End: 05-23-2021 lactated ringers parenteral solution 0.4 ml enoxaparin sodium 100 mg/ml prefilled syringe (1 source) Low Molecular Weight Heparin Start: 05-21-2021 inject 40 mg by subcutaneous injection once daily 40 mg, Subcutaneous, DAILY, First dose on Anabel 05/21/21 at 0900, Until Discontinued hydrOXYzine hydrochloride 10 mg oral tablet (1 source) Antihistamine Start: 05-21-2021 End: 05-21-2021 hydrOXYzine HCL (ATARAX) tablet 10 mg iopamidol 370 mg iodine/mL (ISOVUE-370) 76 % injection solution 100 mL (1 source) Start: 05-20-2021 End: 05-20-2021 iopamidol 370 mg iodine/mL (ISOVUE-370) 76 % injection solution 100 mL Problems Problem Classification Problem Date Documented Da te Episodic/Chronic Disorders of lipid metabolism (6 sources) Hyperlipidemia; Translations: [Other and unspecified hyperlipidemia] Chronic Other aftercare (6 sources) Post-discharge follow-up; Translations: [Other follow-up examination] Episodic Other lower respiratory disease (1 source) Hypoxia; Translations: [Hypoxemia] Episodic Other lower respiratory disease (3 sources) Dyspnea on exertion; Translations: [Other respiratory abnormalities] Episodic Septicemia (except in labor) (1 source) Sepsis; Translations: [Sepsis, unspecified organism] Episodic Spondylosis; intervertebral disc disorders; other back problems (6 sources) Low back pain; Translations: [Lumbago] Episodic Viral infection (8 sources) Disease caused by 2019-nCoV; Translations: [COVID-19] Onset: 05-20-2021 Episodic Results Test Name Value Interpretation Reference Range Facil ity Vital Signs Date Time Vital Sign Value Performing Clinician Gay aburto 08-20-2021 14:04-0500 Body height 175.26 cm Referring Provider Unknown [facility] Work Phone: 08-20-2021 14:04-0500 Body mass index (BMI) [Ratio] 31.96 kg/m2 Referring Provider Unknown [facility] Work Phone: 08-20-2021 14:04-0500 Body surface area Derived from formula 2.14 m2 Referring Provider Unknown [facility] Work Phone: 08-20-2021 14:04-0500 Body weight 98.18 kg Referring Provider Unknown [facility] Work Phone: 08-20-2021 14:04-0500 Diastolic blood pressure 78 mm[Hg] Referring Provider Unknown [facility] Work Phone: 08-20-2021 14:04-0500 Heart rate 65 /min Referring Provider Unknown [facility] Work Phone: 08-20-2021 14:04-0500 Respiratory rate 16 /min Referring Provider Unknown [facility] Work Phone: 08-20-2021 14:04-0500 SaO2% (BldA) [Mass fraction] 97 % Referring Provider Unknown [facility] Work Phone: 08-20-2021 14:04-0500 Systolic blood pressure 126 mm[Hg] Referring Provider Unknown [facility] Work Phone: 05-24-2021 09:37-0500 Body temperature 98.2 [degF] Za Raphael MD Work Phone: [facility] 05-24-2021 09:37-0500 Diastolic blood pressure 62 mm[Hg] Za Raphael MD Work Phone: [employer] 05-24-2021 09:37-0500 Heart rate 52 /min Za Raphael MD Work Phone: [employer] 05-24-2021 09:37-0500 Respiratory rate 20 /min Za Raphael MD Work Phone: [employer] 05-24-2021 09:37-0500 SaO2% (BldA) [Mass fraction] 98 % Za Raphael MD Work Phone: [employer] 05-24-2021 09:37-0500 Systolic blood pressure 133 mm[Hg] Za Raphael MD Work Phone: [employer] 05-21-2021 01:32-0500 Body height 177.8 cm Za Raphael MD Work Phone: [employer] 05-21-2021 01:32-0500 Body mass index (BMI) [Ratio] 28.84 kg/m2 Za Raphael MD Work Phone: [employer] 05-21-2021 01:32-0500 Body weight 91.17 kg Za Raphael MD Work Phone: [facility] Encounters Encounter Date Encounter Type Care Provider Facility Start: 10-18-2022 End: 10-18-2022 ambulatory ALEX KAY Facility:[facility] Start: 10-18-2022 End: 10-18-2022 Subsequent hospital visit by physician [employer] [employer] [facility] Wstr (I-Stat/1.5t) Work Phone: Radiology Start: 09-22-2021 AUDIT Referring Prov ider Unknown [facility] Work Phone: Start: 08-20-2021 Current tobacco non-user cad cap copd pv dm Referring Provider Unknown [facility] Work Phone: Start: 05-20-2021 End: 05-24-2021 Evaluation and management of inpatient Za Raphael MD Work Phone: [facility] Procedures Date Procedure Procedure Detail Performing Clinician Start: 10-18-2022 Mri any jt upper ext remity w/o & w/contr matrl [facility] Provider Start: 05-24-2021 Renal function panel Sa jose roberto Maria MD Work Phone: Start: 05-23-2021 Renal function panel Sa jose roberto Maria MD Work Phone: Start: 05-22-2021 Renal function panel Sa jose roberto aMria MD Work Phone: Start: 05-21-2021 Basic metabolic 2000 panel - Serum or Plasma Rahat Merino MD Work Phone: Start: 05-21-2021 Blood count complete automated Rahat Merino MD Work Phone: Start: 05-20-2021 Assay of troponin quantitative Rahat Merino MD Work Phone: Start: 05-20-2021 C-reactive protein Rishabh Merino MD Work Phone: Start: 05-20-2021 D-DIMER Rahat tran MD Work Phone: Start: 05-20-2021 Assay of troponin quantitative Rahat Merino MD Work Phone: Start: 05-20-2021 PROCALCITONIN Rahat bell MD Work Phone: Start: 05-20-2021 Ct thorax w/contrast material Dino Gonzalez MD Work Phone: Start: 05-20-2021 Assay of troponin quantitative Dino Gonzalez MD Work Phone: Start: 05-20-2021 Basic metabolic 2000 panel - Serum or Plasma Dino Gonzalez MD Work Phone: Start: 05-20-2021 Blood gases any comb ination ph pco2 po2 co2 hco3 Dino Gonzalez MD Work Phone: Start: 05-20-2021 CBC W Auto Different ial panel - Blood Dino Gonzalez MD Work Phone: Start: 05-20-2021 COMPLETE BLOOD COUNT WITH DIFFERENTIAL Dino Gonzalez MD Work Phone: Start: 05-20-2021 Ecg routine ecg w/le ast 12 lds w/i&r Dino Gonzalez MD Work Phone: Start: 05-20-2021 EMS RUN SHEET [facility] Huy montano MD Work Phone (unformatted): [phone] Plan of Treatment Date Care Activity Detail Author Start: 2023 Lipid 1996 panel - S john or Plasma Lipid Screening [facility] Start: 02-25-2023 Influenza vaccination Influenza Vacc ine (#1) [facility] Start: 06-27-2022 Depression Assessment Depression Ass essment [facility] Start: 10-19-2021 PST, Provider: MIRYAM Rizvi PULMONARY FUNCTION TST,GRHPFT, Status: Pen, Time: 11:00 AM PST, Provider: TIM PULMONARY FUNCTION TST,GRHPFT, Status: Pen, Time: 11:00 AM [facility] Work Phone: Start: 10-19-2021 PFT, Provider: MIRYAM Rizvi PULMONARY FUNCTION TST,GRHPFT, Status: Pen, Time: 10:00 AM PFT, Provider: TIM PULMONARY FUNCTION TST,GRHPFT, Status: Pen, Time: 10:00 AM [facility] Work Phone: Start: 01-25-2021 Influenza vaccination INFLUENZA VACC INE [facility] Start: 2007 DTaP/Tdap/Td VACCINE S (1 - Tdap) DTaP/Tdap/Td VACCINES (1 - Tdap) [facility] Start: 2007 Urine microalbumin profile DTaP,Tdap,Td Vaccine (1 - Tdap) [facility] Start: 2006 HEPATITIS C SCREENING HEPATITIS C SC REENING [facility] Start: 2006 HIV Screening HIV Screening [facility] Start: 2003 HIV SCREENING HIV SCREENING [facility] Start: 2000 COVID-19 VACCINE (1) COVID-19 VACCIN E (1) [facility] Start: 1991 ANNUAL PREVENTIVE PHYSICAL (INCLUDES MAAP) ANNUAL PREVENTIVE PHYSICAL (INCLUDES MAAP) [facility] Start: 1988 Covid-19 Vaccine (#1) Covid-19 Vacci ne (#1) [facility] Start: 1988 Hepatitis B Vaccine (1 of 3 - 3-dose series) Hepatitis B Vaccine (1 of 3 - 3-dose series) [facility] Standard ECG EKG Standard EKG STAT 05/20/2021 7:22 PM EST [facility] Work Phone: Immunizations Immunization Date Immunization Notes Care Provider Jody richmond 01-09-2014 human papilloma viru s vaccine, quadrivalent; Translations: [HPV (Gardasil)] Referring Provider [facility] Work Phone: Payers Date Payer Category Payer Unknown 2021 Unknown [id number] Unknown [employer]-OUT OF [employer] [id number] Effective for all dates [address] [place] [address] [id number] Social History Date Type Detail Facility Tobacco smoking stat [facility] Tobacco smoking consumption unknown [facility] Start: 05-21-2021 History SDOH Alcohol Frequency 1 [facility] Start: 05-21-2021 History SDOH Social Conne[facility] Start: 05-21-2021 History SDOH Social Connections Membership 2 [facility] Start: 05-21-2021 History SDOH Physica l Activity DPW 3 [facility] Start: 1990 Sex Assigned At Not on file [facility] Exposure to SARS-CoV -2 (event) Yes [facility] Marital History - Single Marital History - Single [facility] Work Phone: Gender identity Not on file [facility] [email or web address] Clinical Notes 05-20-2021 to 10-18-2022 Kaylynn Mitchell, RT(R) - 10/18/2022 10:40 AM Minnie Clinton RN - 05/24/2021 12:17 PM Minnie Morejon RN - 05/24/2021 10:12 AM Deborah Martin RN - 05/23/2021 7:38 AM EST Note Date & Type Note Facility 10-18-2022 Note HNO ID: [id number] Author: RT Michelle(R) Service: ? Author Type: Technologist Type: Progress Notes Filed: 10/18/2022 11:19 AM Note Text: Radiology Service Progress Note DATE OF SERVICE: October 18, 2022 TIME: 11:19 AM PATIENT IDENTITY VERIFICATION COMPLETED USING TWO (2) STANDARD IDENTIFIERS: Name and Date of confirmed by patient verbally. FALL SCREENING: Has the patient had 2 falls in the last year or 1 fall with injury or currently using an Ambulatory Assistive Device (Walker, Cane, Wheelchair, Crutches, etc.)? No PATIENT GENDER DATA: Male PATIENT RELEVANT IMPLANT DATA REVIEWED: Yes ALLERGIES: Reviewed and unchanged CONTRAST ALLERGY: NO. EXAM: MRI - CONTRAST TYPE: GROUP II PERIPHERAL IV DATA: Ambulatory: A peripheral IV was started in the Right antecubital site with a Angio cath: 22 gauge. RADIOLOGY DEPARTMENT: MR; Exam(s) Completed: Upper MSK: Shoulder, left SIGNATURE: RT Michelle(R) PATIENT NAME: Meme Campbell DATE: October 18, 2022 TIME: 11:19 AM [facility] 10-18-2022 History of Present illness Narrative Radiology Service Progress Note DATE OF SERVICE: October 18, 2022 TIME: 11:19 AM PATIENT IDENTITY VERIFICATION COMPLETED USING TWO (2) STANDARD IDENTIFIERS: Name and Date of confirmed by patient verbally. FALL SCREENING: Has the patient had 2 falls in the last year or 1 fall with injury or currently using an Ambulatory Assistive Device (Walker, Cane, Wheelchair, Crutches, etc.)? No PATIENT GENDER DATA: Male PATIENT RELEVANT IMPLANT DATA REVIEWED: Yes ALLERGIES: Reviewed and unchanged CONTRAST ALLERGY: NO. EXAM: MRI - CONTRAST TYPE: GROUP II PERIPHERAL IV DATA: Ambulatory: A peripheral IV was started in the Right antecubital site with a Angio cath: 22 gauge. RADIOLOGY DEPARTMENT: MR; Exam(s) Completed: Upper MSK: Shoulder, left SIGNATURE: RT Michelle(R) PATIENT NAME: Meme Campbell DATE: October 18, 2022 TIME: 11:19 AM documented in this encounter [facility] 05-24-2021 Nurse Note Verbal and written D/C instructions given, pt verbalized understanding. Scripts given, verbal and written education provided regarding medications, including side effects. All questions answered. Placed patient on room air at rest. Oxygen sats 94%. Ambulated patient on room air. Patient's oxygen decreased to 92% on room air. Kept patient on room air. Continued activity. Patient stayed above 92% during activity. Completed 6 minute walk on room air. The patients dad Kenneth was called with updates no issues or concerns at this time. Per patient request, daily phone update made to friend Nayana Cooper. All questions and concerns addressed Updated Patient's father, Tobin on plan of care. Answered all questions and concerns. No further needs as this time. Spoke with patient's father and gave update. documented in this encounter [facility] 05-24-2021 History of Present illness Narrative Resp eval. RA; lungs decreased, clear; strong NPC. 1750 with ISE, encouraged Q1 use; no other acute resp indicators at this time, resp eval d/c'd. 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 He tested positive for Covid 05/19/2021. Reportedly saturating 85% on room air per medics. Required supplemental oxygen on presentation. Does report loss of taste over the past week. Reports positive sick contacts in the form of his mother and father who were diagnosed with Covid this past week. Unfortunately his mother on 05/20. CT chest PE protocol showed no PE but extensive patchy infiltrate in the lungs. Admitted for further management. Acute hypoxic respiratory failure secondary to COVID-19 infection Sepsis due to severe COVID pneumonia, with acute sepsis-related organ dysfunction, acute hypoxic respiratory failure as evidenced by SPO2 < 89% on RM air. Pleuritic chest pain, improved Anion gap metabolic acidosis, improving Body mass index is 28.84 kg/m . CRP 13.6, procalcitonin 0.13, D-dimer 0.42. Fever of 103F at admission. Fever trended down since. Required up to 7 L via nasal cannula, down to 3 L currently. Wean down further to room air as tolerated Presented too late in illness to benefit from remdesivir. Not needing Toci as O2 requirements improving, and < 10 L. Continue Decadron for DEXA ARDS dosing started 05/22/2021 Continue PPI for stress ulcer prophylaxis Negative D-dimer initially on 05/20/2021. May need to check venous Dopplers or repeat D-dimer if oxygenation worsening. Continue nebs, respiratory protocol. Encourage self proning as tolerated. Per Covid ID, lazaraay to DC isolation. Transfer out of [facility]. Diet: Regular IVF discontinued GI ppx: PPI DVT Prophylaxis: Lovenox Orders Placed This Encounter Total Alternative Energy Engineer input reviewed. Chart ,labs ,imaging and other pertinent notes reviewed. Plan of care discussed with patient, RN Reviewed CT chest Images with patient. Transfer out of [facility]. Subjective Pt. seen and examined. Evaluated at bedside, no more fevers, hemodynamically stable, on 3 L by nasal cannula saturating 97%. Still working on deep breathing, but able to self prone. Scheduled meds: dexamethasone (DECADRON) 20 mg in NaCl 0.9% 50 mL ivpb 20 mg Intravenous daily FOLLOWED BY [START ON 05/27/2021] dexamethasone (DECADRON) injection 10 mg 10 mg IV Push daily; pantoprazole (PROTONIX) enteric-coated tablet 40 mg 40 mg Oral daily; saline flush 10 mL IV Push Q12H; enoxaparin (LOVENOX) syringe 40 mg 40 mg Subcutaneous daily Continuous infusions: lactated ringers parenteral solution Last Rate: 50 mL/hr (05/22/21 1308); NaCl 0.9% 1,000 mL PRN meds: hypromellose (GENTEAL) 0.3% ophth gel 1 Drop guaiFENesin (ROBITUSSIN) LIQUID 100 mg sodium chloride (DEEP SEA) 0.65 % nasal solution albuterol (PROVENTIL) 90 mcg/actuation inhalation aerosol 2 Puff saline flush NaCl 0.9% 1,000 mL acetaminophen (TYLENOL) tablet 650 mg (Meds that have been ordered and completed are not included above) Objective Vital Signs: Temp: 97.8 F (36.6 C) (05/23/21 0800) Temp Min: 96 F (35.6 C) Min taken time: 05/22/212032 Max: 98.2 F (36.8 C) Max taken time: 05/22/21 1846 BP: 99/53 (05/23/21 0800) Pulse: 56 (05/23/21 1059) Resp: 20 (05/23/21 1059) SpO2: 97 % (05/23/21 1059) I/O last 3 completed shifts: In: 1720 [P.O.:1170; I.V.:550] Out: 2014 [Urine:2014] Baseline Weight: 91.2 kg (201 lb) (05/20/21 1846) Most recent Weight: 91.2 kg (201 lb) (05/21/21131) Last Bowel Movement: 05/21/21 (05/22/212032) EXAM General appearance: lying prone in bed NAD, AA&O HEENT: AT/NC, tracks examiner Neck: Supple CV: RRR, no murmurs appreciated Pulm: poor inspiratory effort, but + bilateral air entry, unlabored breathing Abd: Soft, +BS, NT, ND, no guarding or rigidity Extr: No edema. 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 [employer] Secure Chat Impression: COVID-19 infection: Onset of illness 05/13 Date of initial + CoVID 19 test: 05/19 outpatient Chest imagin/24 - bilateral infiltrates Tmax past 24 hr: afebrile Oxygen: 7L-->5L Initial CRP: 13.6; PCT: 0.13 Thrombosis concerns: CT PE negative Covid vaccination status: unvaccinated Other COVID-19 Concerns: BMI 29 Plan: DC contact and droplet isolation with eye protection Antimicrobials: none Dexamethasone: DEXA-ARDS dosing started 05/22 Remdesivir: Not indicated, too far into illness IL6: NI, consider if FiO2 >10L Ok to transfer off [facility] today History: Afebrile, O2 improved to 5L. 31 year old male who presented to hospital with shortness of breath. symptom onset 8 days prior to hospital visit. Diagnosed with COVID infection 05/19. Of note, his mother and father were also diagnosed with COVID-19 in the last week. Patient reported that his mother from COVID. Vital Signs: Temp Av.4 F (36.3 C) Min: 96 F (35.6 C) Max: 98.3 F (36.8 C) Pulse: 54 (05/23/21599) BP: 117/58 (05/23/21 0426) SpO2: 98 % (05/23/21599) Oxygen Source: Nasal cannula (05/23/21599) Oxygen Liters Per Minute: 5 LITERS PER MINUTE (05/23/21599) Exam Gen: Lying in bed HEENT: Atraumatic NECK: Supple CHEST: NAD HEART: RRR EXT: No cyanosis or edema NEURO: Non-focal SKIN: No rashes noted Labs: WBC Count Date Value Ref Range Status 05/21/2021 7.4 3.5 - 10.9 K/uL Final 05/20/2021 5.8 3.5 - 10.9 K/uL Final Creatinine Date Value Ref Range Status 05/22/2021 0.6 0.5 - 1.4 mg/dL Final 05/21/2021 0.8 0.5 - 1.4 mg/dL Final Electronically signed by: Beatris Brito APRN, 05/23/2021 [facility] Progress Note Patient discussed during interdisciplinary rounds with Nurse park manager, home health care case manager, social services director, bedside nurse, physician, and therapist. Barriers to discharge: IV dexamethasone, 7L/NC, febrile DC plan: home Estimated DC Date: May 24, 2021 Electronically signed by: Clemente Dias RN, BSN, Industrial Designer, Phone [phone], 05/22/2021 10:52 AM Weekday Office Hours: 8:30-5:00. Holiday/Weekends [phone]. For urgent needs between 5p-7p, please call [phone]. If after 7pm, please call [facility] at [phone] or [facility] at [phone]. 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 [employer] Secure Chat Impression: COVID-19 infection: Onset of illness 05/13 Date of initial + CoVID 19 test: 05/19 outpatient Chest imagin/24 - bilateral infiltrates Tmax past 24 hr: afebrile Oxygen: 3L-->7L Initial CRP: 13.6; PCT: 0.13 Thrombosis concerns: CT PE negative Covid vaccination status: unvaccinated Other COVID-19 Concerns: BMI 29 Plan: Continue contact and droplet isolation with eye protection Antimicrobials: none Dexamethasone: DEXA-ARDS dosing started 05/22 Remdesivir: Not indicated, too far into illness IL6: NI, consider if FiO2 >10L Timing for transfer off [facility]: o Keep on [facility] today with jump in O2, was febrile yesterday. Will re-evaluate for transfer tomorrow o 06/01 at the latest ID will follow daily History: Now afebrile, O2 up to 7L 31 year old male who presented to hospital with shortness of breath. symptom onset 8 days prior to hospital visit. Diagnosed with COVID infection 05/19. Of note, his mother and father were also diagnosed with COVID-19 in the last week. Patient reported that his mother from COVID. Vital Signs: Temp Av.7 F (36.5 C) Min: 96.7 F (35.9 C) Max: 98.3 F (36.8 C) Pulse: 54 (05/22/21 0842) BP: 112/64 (05/22/21 08) SpO2: 90 % (05/22/21 08) Oxygen Source: Nasal cannula (05/22/21 08) Oxygen Liters Per Minute: 7 LITERS PER MINUTE (05/22/21 0600) Exam Gen: Lying in bed HEENT: Atraumatic NECK: Supple CHEST: NAD HEART: RRR EXT: No cyanosis or edema NEURO: Non-focal SKIN: No rashes noted Labs: WBC Count Date Value Ref Range Status 05/21/2021 7.4 3.5 - 10.9 K/uL Final 05/20/2021 5.8 3.5 - 10.9 K/uL Final Creatinine Date Value Ref Range Status 05/22/2021 0.6 0.5 - 1.4 mg/dL Final 05/21/2021 0.8 0.5 - 1.4 mg/dL Final Electronically signed by: Beatris Brito APRN, 05/22/2021 [facility] Hospitalist Progress Note Ruel Maria Please communicate with secure chat from 7AM to 7PM, Please page 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 Assessment/Plan: Meme Campbell is a 31 year old male presented on 05/20 with shortness of breath and cough of 8 days duration. He tested positive for Covid 05/19/2021. Reportedly saturating 85% on room air per medics. Required supplemental oxygen on presentation. Does report loss of taste over the past week. Reports positive sick contacts in the form of his mother and father who were diagnosed with Covid this past week. Unfortunately his mother on 05/20. CT chest PE protocol showed no PE but extensive patchy infiltrate in the lungs. Admitted for further management. Acute hypoxic respiratory failure secondary to COVID-19 infection Sepsis due to severe COVID pneumonia, with acute sepsis-related organ dysfunction, acute hypoxic respiratory failure as evidenced by SPO2 < 89% on RM air. Pleuritic chest pain Anion gap metabolic acidosis Body mass index is 28.84 kg/m . CRP 13.6, procalcitonin 0.13, D-dimer 0.42. Fever of 103F at admission. Fever trended down since. O2 requirements worsened, currently requiring 7L by nasal cannula. Covid ID on board. Decadron transitioned to DEXA ARDS dosing today since > 6 L O2 requirement Continue PPI for stress ulcer prophylaxis Negative D-dimer initially on 05/20/2021. May need to check venous Dopplers or repeat D-dimer if oxygenation worsening. Continue nebs, respiratory protocol. Encourage self proning as tolerated. Maintain contact and droplet isolation with eye protection. Discontinue isolation when appropriate per Covid ID recommendation Diet: Regular IVF LR reduced to 50 mill per hour. May DC once oral intake improved GI ppx: PPI DVT Prophylaxis: Lovenox Orders Placed This Encounter Total Alternative Energy Engineer input reviewed. Chart ,labs ,imaging and other pertinent notes reviewed. Plan of care discussed with patient, RN Reviewed CT chest Images with patient yesterday. Subjective Pt. seen and examined. Evaluated at bedside,no fevers in past 24 hrs, hemodynamically stable, now requiring 7L from 3 yesterday, Having coughing bouts on deep breathing Scheduled meds: dexamethasone (DECADRON) injection 6 mg 6 mg IV Push daily; pantoprazole (PROTONIX) enteric-coated tablet 40 mg 40 mg Oral daily; saline flush 10 mL IV Push Q12H; enoxaparin (LOVENOX) syringe 40 mg 40 mg Subcutaneous daily Continuous infusions: lactated ringers parenteral solution Last Rate: 100 mL/hr at 05/22/21 0652; NaCl 0.9% 1,000 mL PRN meds: hypromellose (GENTEAL) 0.3% ophth gel 1 Drop guaiFENesin (ROBITUSSIN) LIQUID 100 mg sodium chloride (DEEP SEA) 0.65 % nasal solution albuterol (PROVENTIL) 90 mcg/actuation inhalation aerosol 2 Puff saline flush NaCl 0.9% 1,000 mL acetaminophen (TYLENOL) tablet 650 mg (Meds that have been ordered and completed are not included above) Objective Vital Signs: Temp: 98 F (36.7 C) (05/22/21 0842) Temp Min: 96.7 F (35.9 C) Min taken time: 05/21/212220 Max: 98.3 F (36.8 C) Max taken time: 05/22/21 0428 BP: 112/64 (05/22/21 08) Pulse: 54 (05/22/21841) Resp: 18 (05/22/21841) SpO2: 90 % (05/22/21841) I/O last 3 completed shifts: In: 1200 [P.O.:1200] Out: 1999 [Urine:1999] Baseline Weight: 91.2 kg (201 lb) (05/20/21 1846) Most recent Weight: 91.2 kg (201 lb) (05/21/21131) Last Bowel Movement: 05/21/21 (Per patient) (05/21/21 194) EXAM General appearance: lying in bed NAD, AA&O X3 HEENT: AT/NC, tracks examiner Neck: Supple CV: RRR, no murmurs appreciated Pulm: poor inspiratory effort, unlabored breathing Abd: Soft, +BS, NT, ND, no guarding or rigidity Extr: No edema. Neuro: Generalized weak, no gross motor deficits Skin: No Rashes Labs: reviewed available labs Electronically signed by: Ruel Maria MD, 05/22/2021 8:49 AM [facility] Industrial Designer Opening Interview Progress Note Presents for evaluation/treatment of SOB, was diagnosed w/ Covid 05-19 w/ symptoms starting 8 days prior. No prior medical history. Called into pt room and spoke w/ Meme Campbell who is a 31 year old male via telephone. Introduced self and role of home health care case manager; asked for and received permission to discuss discharge planning with visitors present in room. Pt states entire family got Covid and my mom yesterday . Interview limited d/t pt's dyspnea while talking and he stated he hasn't seen any provider and he doesn't know what the plan is. States he is having a hard breathing d/t fluid being lodged in the throat . Informed pt that IV steroids were just ordered this am and a Covid specialist would be seeing him today. Pt states family just moved up to [place] from [place]. He lives in [place], [place] however says he can stay local at his mother's cousin's apartment in [place] post discharge. Baseline Activity: Independent,Drives Car Current DME Equipment:DME: None Current home oxygen needs (Frequency, Liters, supplier): none Passport/Waiver Services: no If yes, home health care case manager name/number:n/a Transportation needs at discharge: car PCP Name : none Patient to have prescriptions filled at [facility] Outpt Pharmacy at dc: Yes DC plans: KATHARINA: May 22, 2021 Discharge disposition: Home,Home Oxygen Transportation needs at discharge: car Primary support person name/ relationship: dad, Kenneth Barriers to D/C : hypoxia requiring O2 @ 3 lpm (RA); IV Dexamethasone; await ID eval/recommendations Additional Needs: tbd Patient expresses agreement with the discharge plan Will monitor patient's progress and readiness for discharge. Electronically signed by: Leandra Edmonds RN, Industrial Designer, Phone [phone], 05/21/2021 10:17 AM Weekday Office Hours: 8:30-5:00. Holiday/Weekends [phone]. For urgent needs between 5p-7p, please call [phone]. If after 7pm, please call [facility] AO at [phone] or [facility] AO at [phone]. 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 COVID-19 [U07.1] Assessment/Plan: Meme Campbell is a 31 year old male presented with shortness of breath and cough of 3 days duration. He was tested positive for Covid 05/19/2021. Reportedly saturating 85% on room air per medics. Required supplemental oxygen on presentation. Does report loss of taste over the past week. Reports positive sick contacts in the form of his mother and father was diagnosed with Covid this past week. Unfortunately his mother on 05/20. CT chest PE protocol showed no PE but extensive patchy infiltrate in the lungs. Admitted for further management. Acute hypoxic respiratory failure secondary to COVID-19 infection Sepsis due to severe COVID pneumonia, with acute sepsis-related organ dysfunction, acute hypoxic respiratory failure as evidenced by SPO2 < 89% on RM air. Body mass index is 28.84 kg/m . CRP 13.6, procalcitonin 0.13, D-dimer 0.42. + Fever spikes. 103F at admission. Currently requiring 3L by nasal cannula. Continue nebs, respiratory protocol. Encourage self proning as tolerated. Check venous Dopplers Or repeat D-dimer if oxygenation worsening. Covid ID team on board. Maintain contact and droplet isolation with eye protection. Initiated on Decadron 6 mg. Transition to DEXA ARDS dosing if> 6 L O2 requirement Added PPI for stress ulcer prophylaxis Added gentle IVF due to reduced oral intake Discontinue isolation when appropriate per Covid ID recommendation Diet: Regular IVF LR at 100 Bowel regimen to avoid constipation GI ppx: PPI DVT Prophylaxis: Lovenox Orders Placed This Encounter Total Alternative Energy Engineer input reviewed. Chart ,labs ,imaging and other pertinent notes reviewed. Plan of care discussed with patient, RN Reviewed CT chest Images with patient. Subjective Pt. seen and examined. Evaluated at bedside, having fever spikes, needing 3 L saturating 93% . Having coughing bouts during eval . Scheduled meds: saline flush 10 mL IV Push Q12H; enoxaparin (LOVENOX) syringe 40 mg 40 mg Subcutaneous daily Continuous infusions: NaCl 0.9% 1,000 mL PRN meds: saline flush NaCl 0.9% 1,000 mL acetaminophen (TYLENOL) tablet 650 mg (Meds that have been ordered and completed are not included above) Objective Vital Signs: Temp: 98.1 F (36.7 C) (05/21/21 0742) Temp Min: 98.1 F (36.7 C) Min taken time: 05/21/21741 Max: 103 F (39.4 C) Max taken time: 05/20/211845 BP: 115/64 (05/21/21 0340) Pulse: 65 (05/21/21 0400) Resp: 17 (05/21/21 0340) SpO2: 94 % (05/21/21 0400) No intake/output data recorded. Baseline Weight: 91.2 kg (201 lb) (05/20/21 184) Most recent Weight: 91.2 kg (201 lb) (05/21/21 013) Last Bowel Movement: 05/20/21 (05/21/21 07) EXAM General appearance: lying propped up in bed with coughing bouts, AA&O X3 HEENT: AT/NC, tracks examiner Neck: Supple CV: RRR, no murmurs appreciated Pulm: Poor inspiratory effort, bringing on cough spasms, unlabored breathing Abd: Soft, +BS, NT, ND, no guarding or rigidity Extr: No edema. Neuro: Generalized weak, no gross motor deficits Skin: No Rashes Labs: reviewed available labs Electronically signed by: Ruel Maria MD, 05/21/2021 9:00 AM documented in this encounter [facility] 05-24-2021 Hospital course Narrative Images from the original note were not included. [facility] Patient Identifier/Hospitalist Patient: Meme Campbell; 1990 DATE ADMITTED: 05/20/2021 PHYSICIANS CONSULTED: PCP: Ana, [facility] [phone] I saw and examined the patient on 05/24/2021 at 9:14 AM. Hospitalist: Nitesh Parra MD Disposition/Assessment and Plan Disposition: Discharge home KATHARINA: 1 to 3 days Reason for continued hospitalization: Hypoxia Meme Campbell is a 31 year old male presented on 05/20 with shortness of breath and cough of 8 days duration. He tested positive for Covid 05/19/2021. Reportedly saturating 85% on room air per medics. Required supplemental oxygen on presentation. Does report loss of taste over the past week. Reports positive sick contacts in the form of his mother and father who were diagnosed with Covid this past week. Unfortunately his mother on 05/20. CT chest PE protocol showed no PE but extensive patchy infiltrate in the lungs. Patient with good recovery to continue 8 more doses of Decadron. Patient was discharged home instructed follow PCP 1 week Assessment: Meme Campbell is a 31 year old male, Hospital day# 3 Admitted for: Principal Problem: COVID-19 Active Problems: COVID-19 virus infection Plan: Patient afebrile and hemodynamically and clinically stable Patient on 4 L nasal cannula wean as able maintain saturation 92% Electrolytes okay Not a candidate for remdesivir IL-6 not indicated Continue Decadron x8 more doses DVT prophylaxis: Lovenox CODE STATUS: Full Subjective Patient seen and examined at bedside in [facility]. Patient without complication last night. Patient denies chest pain, SOB, palpitations. Patient denies abdominal pain, nausea, vomiting, diarrhea, constipation. Patient denies fever, chills, urinary symptoms. Objective Data Intake/Output Summary (Last 24 hours) at 05/24/2021 0914 Last data filed at 05/24/2021 0700 Gross per 24 hour Intake 920 ml Output 1650 ml Net -730 ml Temp: 97.6 F (36.4 C) (05/23/212023) Temp Min: 97.6 F (36.4 C) Min taken time: 05/23/212023 Max: 98.5 F (36.9 C) Max taken time: 05/23/21 1545 BP: 121/64 (05/23/212023) Pulse: 54 (05/23/212023) Resp: 19 (05/23/212023) SpO2: 93 % (05/23/212023) HEENT: Oropharynx pink, moist, and without lesion or exudate, PERRLA CV: regular rate and rhythm PUL: Bilateral Clear breath sounds throughout ABD: Negative findings: bowel sounds normal, no tenderness Extremity: supple, non-tender, without cyanosis or edema Medications Current Facility-Administered Medications Medication Dose Route Frequency Provider Last Rate Last Admin hypromellose (GENTEAL) 0.3% ophth gel 1 Drop 1 Drop Each Eye QID PRN Denise Price APRN guaiFENesin (ROBITUSSIN) LIQUID 100 mg 5 mL Oral Q4H PRN Denise Price APRN 100 mg at 05/23/212028 sodium chloride (DEEP SEA) 0.65 % nasal solution Nasal PRN Denise Price APRN dexamethasone (DECADRON) 20 mg in NaCl 0.9% 50 mL ivpb 20 mg Intravenous daily Ruel Maria MD 200 mL/hr at 05/23/21 0905 20 mg at 05/23/21 0905 Followed by [START ON 05/27/2021] dexamethasone (DECADRON) injection 10 mg 10 mg IV Push daily Ruel Maria MD pantoprazole (PROTONIX) enteric-coated tablet 40 mg 40 mg Oral daily Ruel Maria MD 40 mg at 05/23/21 0903 albuterol (PROVENTIL) 90 mcg/actuation inhalation aerosol 2 Puff 2 Puff Inhalation Q6H PRN Rahat Merino MD 2 Puff at 05/21/21 1700 saline flush 10 mL IV Push Q12H Rahat Merino MD 1 Syringe at 05/23/21 2030 saline flush 10 mL IV Push PRN Rahat Merino MD NaCl 0.9% 1,000 mL 1,000 mL Intravenous Continuous PRN Rahat Merino MD enoxaparin (LOVENOX) syringe 40 mg 40 mg Subcutaneous daily Rahat Merino MD 40 mg at 05/23/21 0902 albuterol per guideline Inhalation DO NOT DISPENSE Rahat Merino MD albuterol/ipratropium per guideline with albuterol prn for triage 4 & 5 Inhalation DO NOT DISPENSE Rahat Merino MD acetaminophen (TYLENOL) tablet 650 mg 650 mg Oral Q6H PRN Rahat Merino MD 650 mg at 05/21/21 0149 Labs/Imaging - Reviewed Signature Electronically signed by: Nitesh Parra MD, 05/24/2021 9:14 AM documented in this encounter [facility] 05-21-2021 Miscellaneous Notes Problem: Falls - Risk of Goal: Absence of falls Description: Avoid the routine use of bedrails or physical restraints as a fall-prevention intervention. 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 Increase to DEXA-ARDS dosing if O2 > 6L Remdesivir: Not indicated, too far into illness IL6: NI, consider if FiO2 >10L Timing for transfer off HRRU: o 05/22 if afebrile and stable/improving and FiO2 < 10L o /6 at the latest ID will follow daily History: 31 year old male who presented to hospital with shortness of breath. symptom onset 8 days prior to hospital visit. Diagnosed with COVID infection 05/19. Of note, his mother and father were also diagnosed with COVID-19 in the last week. Patient reported that his mother from COVID. Vital Signs: Temp Av.7 F (38.2 C) Min: 98.1 F (36.7 C) Max: 103 F (39.4 C) Pulse: 65 (05/21/21 0400) BP: 115/64 (05/21/21 0340) SpO2: 94 % (05/21/21 0400) Oxygen Source: Nasal cannula (05/21/21 0742) Oxygen Liters Per Minute: 3 LITERS PER MINUTE (05/21/21 0742) Exam Gen: Lying in bed HEENT: Atraumatic NECK: Supple CHEST: NAD HEART: RRR EXT: No cyanosis or edema NEURO: Non-focal SKIN: No rashes noted Labs: WBC Count Date Value Ref Range Status 05/21/2021 7.4 3.5 - 10.9 K/uL Final 05/20/2021 5.8 3.5 - 10.9 K/uL Final Creatinine Date Value Ref Range Status 05/21/2021 0.8 0.5 - 1.4 mg/dL Final 05/20/2021 0.8 0.5 - 1.4 mg/dL Final Electronically signed by: Beatris Brito APRN, 05/21/2021 02 increasing Dex added Too late for Rem Fever coming down Not sure he will be ready for transfer 05/22, will have to see what the next 12 hours brings in terms of 02 Electronically signed by: Vinh Velasco MD, 05/21/2021 7:36 PM documented in this encounter [facility] 05-21-2021 Emergency department Note Report called to Marilee ECKERT. EDT notified for transport. Pt up at bedside to use urinal. Pt to CT at this time. ATTENDING NOTE I have personally seen and examined this patient. I have fully participated in the care of this patient. I have reviewed and agree with all pertinent clinical information including history, physical exam, labs, radiographic studies and the plan except as documented below. I have also reviewed and agree with the medications, allergies and past medical history sections for this patient. CT PE scan completed in the setting of Covid with hypoxia. Negative for pulmonary embolism. Bilateral patchy infiltrate consistent with COVID-19. Patient stable on 3 L of oxygen and admitted to the hospitalist service. 12 Lead EKG completed. Results handed to Za Raphael MD 7:30 PM. Pt arrived via medic with c/o SOB, cough x 8 days. COVID positive yesterday. Per medic, patient O2 85% on room air when picked up. Currently 94% on 3L/NC. Respirations shallow. Alert and oriented x 3. Skin hot/dry. [facility] EMERGENCY DEPARTMENT RESIDENT NOTE TRIAGE CHIEF COMPLAINT: Chief Complaint Patient presents with Cough Shortness of Breath Suspected Coronavirus (Covid-19) HPI: Meme Campbell is a 31 year old male with no past medical history who presents to the ED with a chief complaint of shortness of breath. The patient's was diagnosed with Covid yesterday after having symptoms for about 8 days now. He states that symptoms including shortness of breath and cough as well as generalized fatigue. He states he did lose his taste and smell on Tuesday but regained his taste and smell yesterday. He states that his parents also have Covid and that his mom actually from Covid today. He states that over the last 2 days he is become much more short of breath and today became unbearable prompting him to call. EMS reports an O2 saturation at 85% on room air. Patient is satting at 94% on 3 L nasal cannula currently. Patient is without additional complaints or concerns at this time. REVIEW OF SYSTEMS: See HPI for further details. Review of systems otherwise negative. CONST: Denies recent illness, fever, chills, fatigue EYES: Denies vision change, photophobia ENT: Denies nasal congestion, sore throat CV: Denies chest pain, lightheadedness, syncope RESP: Shortness of breath and cough, no hemoptysis GI: Denies abdominal pain, nausea, vomiting, diarrhea, constipation, melena : Denies dysuria, hematuria, frequency, urgency MSK: Denies back pain, extremity pain SKIN: Denies rash, swelling NEURO: Denies headache, focal weakness, sensory changes Patient Active Problem List Diagnosis COVID-19 PAST MEDICAL HISTORY: History reviewed. No pertinent past medical history. PAST SURGICAL HISTORY: History reviewed. No pertinent surgical history. FAMILY HISTORY: History reviewed. No pertinent family history. SOCIAL HISTORY: Social History Socioeconomic History Marital status: Single Spouse name: Not on file Number of children: Not on file Years of education: Not on file Highest education level: Not on file Occupational History Not on file Tobacco Use Smoking status: Not on file Smokeless tobacco: Not on file Substance and Sexual Activity Alcohol use: Not on file Drug use: Not on file Sexual activity: Not on file Other Topics Concern Not on file Social History Narrative Not on file Social Determinants of Health Financial Resource Strain: Not on file Food Insecurity: Not on file Transportation Needs: Not on file Physical Activity: Not on file Stress: Not on file Social Connections: Not on file Intimate Partner Violence: Not on file Housing Stability: Not on file I have reviewed and verified the above past medical, family, and social history. CURRENT MEDICATIONS: No current facility-administered medications for this encounter. No current outpatient medications on file. ALLERGIES: Remdesivir PHYSICAL EXAM: VITAL SIGNS: The initial triage assessment is as follows: ED Vitals Temp: 103 F (39.4 C) (05/20/211845) Temp Source: Oral (05/20/211845) Pulse: 104 (05/20/211845) Resp: 24 (05/20/211845) BP: 119/61 (05/20/211845) MAP: Noninvasive: 82 mmHg (05/20/211845) SpO2: 94 % (05/20/211845) Oxygen Liters Per Minute: 3 LITERS PER MINUTE (05/20/211845) Oxygen Source: Nasal cannula (05/20/211845) MEWS Level of Consciousness: Alert (05/20/211845) MEWS Total Score: 5 (05/20/211851) Vitals during ED course were reviewed and are as charted. General: Slightly uncomfortable appearing male secondary to cough Eyes: Pupils equally and bilaterally reactive to light. EOMI. Normal conjunctiva. ENMT: Normal external ears and nose. Oropharynx clear. Moist mucous membranes. Neck: Symmetric, trachea midline. No stridor. CV: Tachycardic, +S1/S2, no murmurs or gallops appreciated. Peripheral pulses intact. No cyanosis or edema. Pulm/Chest: Normal respiratory effort. Breath sounds present bilaterally, no wheezes, rales, or rhonchi. Abdomen: Soft, non-distended, non-tender, no rebound or guarding. Neuro: A&Ox3. Motor strength and sensation to soft touch grossly intact. EKG (as interpreted by myself): Normal sinus rhythm at a rate of 97 bpm, normal axis, normal intervals, no ischemia, no previous for comparison RADIOLOGY: I have personally reviewed the images. The radiologist interpretation reveals: CT CHEST PE PROTOCOL (Results Pending) LAB RESULTS: Recent Results (from the past 24 hour(s)) VENOUS BLOOD GAS Collection Time: 05/20/21 7:30 PM Result Value Ref Range PH VENOUS 7.50 (H) 7.32 - 7.42 pH Units pCO2, Venous 35.2 (L) 41.0 - 51.0 mmHg pO2, Venous 40.9 (H) 25.0 - 40.0 mmHg O2 SAT, Venous 80.7 (H) 40.0 - 70.0 % HCO3, Venous 27.2 24.0 - 28.0 mmol/L Base Excess 4.2 (H) -2.0 - 3.0 mmol/L Scan Result BASIC METABOLIC PANEL Collection Time: 05/20/21 7:30 PM Result Value Ref Range Sodium 131 (L) 135 - 148 mEq/L Potassium 3.9 3.4 - 5.3 mEq/L Chloride 94 (L) 96 - 110 mEq/L Carbon Dioxide 24 19 - 32 mEq/L BUN 8 3 - 29 mg/dL Creatinine 0.8 0.5 - 1.4 mg/dL Glucose 123 (H) 70 - 99 mg/dL Calcium 8.5 8.5 - 10.5 mg/dL Anion Gap 13 5 - 15 BUN/CREAT Ratio 10 7 - 25 Estimated GFR 120 >=60 mL/min/1.73m*2 TROPONIN T (BASELINE) Collection Time: 05/20/21 7:30 PM Result Value Ref Range Troponin T, Baseline <6 <=22 ng/L COMPLETE BLOOD COUNT WITH DIFFERENTIAL Collection Time: 05/20/21 7:30 PM Result Value Ref Range WBC Count 5.8 3.5 - 10.9 K/uL RBC 5.04 4.14 - 5.80 M/uL Hemoglobin 14.8 13.0 - 17.7 g/dL Hematocrit 41.3 37.5 - 51.0 % MCV 81.9 80.0 - 100.0 fL MCH 29.4 26.0 - 34.0 pg MCHC 35.8 (H) 30.7 - 35.5 g/dL RDW 10.5 <=15.0 % Platelet Count 183 140 - 400 K/uL MPV 9.0 7.2 - 11.7 fL % Neutrophils 81.5 (H) 42.0 - 80.0 % % Lymphocytes 12.0 (L) 14.0 - 51.0 % % Monocytes 5.9 4.0 - 12.0 % % Eosinophils 0.0 0.0 - 5.0 % % Basophils 0.3 0.0 - 2.0 % % Immature Granulocyte 0.3 <1.0 % Absolute Neutrophils 4.7 1.8 - 7.5 K/uL Absolute Lymphocyte 0.7 (L) 0.9 - 4.1 K/uL Absolute Monocyte 0.3 0.2 - 1.0 K/uL Absolute Eosinophils 0.0 0.0 - 0.5 K/uL Absolute Basophil 0.0 0.0 - 0.3 K/uL Absolute Immature Granulocytes 0.0 0.0 - 0.1 K/uL PROCEDURES: None. ED COURSE & MEDICAL DECISION MAKING: Pertinent labs, imaging studies, and nursing notes from current visit reviewed. Patient is a 31 year old male presenting with shortness of breath after being diagnosed with Covid. History and Physical as above. Patient has new oxygen requirements and will likely need to be admitted to the hospitalist. I communicated this to the patient who vocalized understanding and agreement. The patient has a respiratory alkalosis but otherwise labs are nonfocal. I spoke with the hospitalist who agreed to admit the patient. Patient remained stable on 3 L until transfer. The exam and findings were discussed with the patient and he was comfortable with the plan to admit. Patient remained hemodynamically stable and well appearing up to time of admission. The patient received the following medications in the ED: Medications - No data to display FINAL IMPRESSION: 1. COVID-19 2. Hypoxia DISPOSITION: Admit to the hospitalist Disposition Decision Time: See ED Timeline. Seen and discussed with attending physician, No att. providers found , who was in agreement with assessment and plan. Electronically signed by DINO GONZALEZ DO Emergency Medicine, PGY-1 05/20/2021, 7:53 PM Bed: [facility] Expected date: Expected time: Means of arrival: Comments: documented in this encounter [facility] 05-20-2021 Note HISTORY: COUGH, SHOR TNESS OF BREATH, SUSPECTED CORONAVIRUS (COVID-19), COVID-19, Hypoxia, COMPARISON: none TECHNIQUE: Automatic exposure control was used for dose reduction. MEDICATIONS: Omnipaque IV FINDINGS Chest CTA CT angiogram images of the chest including 3-D MIP angiogram images. No pulmonary embolism identified. Extensive patchy infiltrate in the lungs, more the lung periphery and the dependent portion of the lungs. No significant distention of the thoracic aorta. Small nonspecific mediastinal and hilar lymph nodes. The heart size is within normal limits. There is no significant pericardial effusion. IMPRESSION: 1. Extensive patchy infiltrate in the lungs which could be due to inflammatory/infectious process including viral infection/COVID-19. 2. No pulmonary embolism identified. Dictated by Estuardo Sanchez MD, PhD Workstation ID:[id number] Pt arrived via medic with c/o SOB, cough x 8 days. COVID positive yesterday. Per medic, patient O2 85% on room air when picked up. Currently 94% on 3L/NC. Respirations shallow. Alert and oriented x 3. Skin hot/dry. [facility] 05-20-2021 Note HISTORY: COUGH, SHOR TNESS OF BREATH, SUSPECTED CORONAVIRUS (COVID-19), COVID-19, Hypoxia, COMPARISON: none TECHNIQUE: Automatic exposure control was used for dose reduction. MEDICATIONS: Omnipaque IV FINDINGS Chest CTA CT angiogram images of the chest including 3-D MIP angiogram images. No pulmonary embolism identified. Extensive patchy infiltrate in the lungs, more the lung periphery and the dependent portion of the lungs. No significant distention of the thoracic aorta. Small nonspecific mediastinal and hilar lymph nodes. The heart size is within normal limits. There is no significant pericardial effusion. [facility] 05-20-2021 History and physical note Images from the original note were not included. [facility] History & Physical 05/20/2021 Patient Identifier/Hospitalist Patient Name: Meme Campbell : 1990 I saw and examined the patient at 7:38 PM on 05/20/2021 Hospitalist: Rahat Merino MD Spectralink:Secure Chat Till 9 PM. Please contact on-call hospitalist after. Disposition/Assessment and Plan Disposition: Likely home in 1 to 2 days Assessment and Plan:Patient is a 31-year-old gentleman who presents to the hospital with chief complaint of shortness of breath in setting of Covid 19. #COVID19 -Continue pulse oximetry, Oxygen as needed to maintain o2 sats greater than 90% -Check C-reactive protein, Dexamethasone for confirmed COVID patients who are on >2L NC and CRP >10. If <10 no indication for dexamethasone. -Procalcitonin pending. CT chest PE pending -Troponin and D-dimer pending -Continue contact and droplet isolation DVT Prophylaxis: Enoxaparin Code Status: Total Subjective Chief Complaint: COVID-19 History of Present Illness: Patient is a 31-year-old gentleman who presents to the hospital with chief complaint of shortness of breath, cough/8 days. He was found to be Covid positive yesterday. Reportedly patient was 85% on room air per medics. He is now saturating 94% on 3 L of cannula. Patient has been experiencing multiple Covid symptoms including loss of sense of taste over the last week. Of note, his mother and father were also diagnosed with COVID-19 in the last week. Unfortunately his mother earlier today from COVID-19 At the ED, most recent vitals included T103, HR 104, RR 24, O2 sat 94% on 3 L nasal cannula, BP 119/61. Labs are notable for VBG with pH 7.50, PCO2 35, lymphopenia. BMP and troponin pending. EKG with normal sinus rhythm with limitations of artifact and wandering baseline Review of Systems: Complete 14 point review of systems performed and negative except mentioned above History reviewed. No pertinent past medical history. History reviewed. No pertinent surgical history. Social History Socioeconomic History Marital status: Single Spouse name: Not on file Number of children: Not on file Years of education: Not on file Highest education level: Not on file Occupational History Not on file Tobacco Use Smoking status: Not on file Smokeless tobacco: Not on file Substance and Sexual Activity Alcohol use: Not on file Drug use: Not on file Sexual activity: Not on file Other Topics Concern Not on file Social History Narrative Not on file Social Determinants of Health Financial Resource Strain: Not on file Food Insecurity: Not on file Transportation Needs: Not on file Physical Activity: Not on file Stress: Not on file Social Connections: Not on file Intimate Partner Violence: Not on file Housing Stability: Not on file History reviewed. No pertinent family history. Allergies: Allergies Allergen Reactions Remdesivir Other - comment required Pt states grandfather had serious reaction to Remdesivir, so he will not take Home Medications: No outpatient medications have been marked as taking for the 05/20/21 encounter (Hospital Encounter). Objective Exam: Vital Signs: Temp: 103 F (39.4 C) (05/20/211845) Temp Min: 103 F (39.4 C) Min taken time: 05/20/211845 Max: 103 F (39.4 C) Max taken time: 05/20/211845 BP: 119/61 (05/20/211845) Pulse: 104 (05/20/211845) Resp: 24 (05/20/211845) SpO2: 94 % (05/20/211845) General: Awake, alert and in no distress HEENT: PERRLA, EOMI, oropharynx pink, moist, without lesion Neck: Supple, no thyromegaly, lymphadenopathy, no bruits CV: Regular rate and rhythm, no murmur, rub, gallop Pulm: Clear to auscultation, no respiratory distress Abd: Soft, nontender, nondistended, normal bowel sounds. No mass or organomegaly Neuro/Psych: AAO 3, speech normal, good eye contact, CN II through XII intact, Extrem: Supple, nontender, no edema Skin: No rashes. Color, turgor normal Diagnostic Data: Labs--Reviewed: Recent Results (from the past 24 hour(s)) VENOUS BLOOD GAS Collection Time: 05/20/21 7:30 PM Result Value Ref Range PH VENOUS 7.50 (H) 7.32 - 7.42 pH Units pCO2, Venous 35.2 (L) 41.0 - 51.0 mmHg pO2, Venous 40.9 (H) 25.0 - 40.0 mmHg O2 SAT, Venous 80.7 (H) 40.0 - 70.0 % HCO3, Venous 27.2 24.0 - 28.0 mmol/L Base Excess 4.2 (H) -2.0 - 3.0 mmol/L Scan Result COMPLETE BLOOD COUNT WITH DIFFERENTIAL Collection Time: 05/20/21 7:30 PM Result Value Ref Range WBC Count 5.8 3.5 - 10.9 K/uL RBC 5.04 4.14 - 5.80 M/uL Hemoglobin 14.8 13.0 - 17.7 g/dL Hematocrit 41.3 37.5 - 51.0 % MCV 81.9 80.0 - 100.0 fL MCH 29.4 26.0 - 34.0 pg MCHC 35.8 (H) 30.7 - 35.5 g/dL RDW 10.5 <=15.0 % Platelet Count 183 140 - 400 K/uL MPV 9.0 7.2 - 11.7 fL % Neutrophils 81.5 (H) 42.0 - 80.0 % % Lymphocytes 12.0 (L) 14.0 - 51.0 % % Monocytes 5.9 4.0 - 12.0 % % Eosinophils 0.0 0.0 - 5.0 % % Basophils 0.3 0.0 - 2.0 % % Immature Granulocyte 0.3 <1.0 % Absolute Neutrophils 4.7 1.8 - 7.5 K/uL Absolute Lymphocyte 0.7 (L) 0.9 - 4.1 K/uL Absolute Monocyte 0.3 0.2 - 1.0 K/uL Absolute Eosinophils 0.0 0.0 - 0.5 K/uL Absolute Basophil 0.0 0.0 - 0.3 K/uL Absolute Immature Granulocytes 0.0 0.0 - 0.1 K/uL Imaging--Reviewed: No results found. Signature Electronically signed by: Rahat Merino MD, 05/20/2021 7:38 PM documented in this encounter [facility] Chief complaint Narrative - Reported MEME CAMPBELL is here for an initial evaluation.Reason for Visit: post covid. [place] [address] Work Phone: Chief complaint Narrative - Reported MEME CAMPBELL is here for an initial evaluation.Reason for Visit: post covid. -[place] [place] [address] [facility] Work Phone: Chief complaint Narrative - Reported MEME CAMPBELL is here for an initial evaluation.Reason [facility] Visit[facility] Work Phone: documented in this encounter [facility] N[facility]* COPD CAT Assessment The numbers in the [ ] represent the number the patient selected on the CAT Asse ssment form * I never cough: [0] 1 2 3 4 5 I cough all the time * I have no phlegm (mucus) in my chest at all: [0] 1 2 3 4 5 My chest is full of phlegm * My chest does not feel tight at all: [0] 1 2 3 4 5 My chest feels very tight * When I walk up a hill or one flight of stairs I am not breathless: [0] 1 2 3 4 5 When I walk up a hill or one flight of stairs I am very breathless * I am not limited doing any activities at home: [0] 1 2 3 4 5 I am very limited doing activities at home * I am confident leaving my home despite my lung condition: [0] 1 2 3 4 5 I am not at all confident leaving my home because of my lung condition * I sleep soundly: [0] 1 2 3 4 5 I don't sleep soundly because of my lung condition * I have lots of energy: [0] 1 2 3 4 5 I have no energy at all * (CAT) Score: 0. * Very pleasant 31-year-old male without significant medical history presenting for follow-up on respiratory failure due to Covid infection back in April. Hospitalized [place], discharged without oxygen need. Has recovered really well since then, back to normal life and functional status, exercising without limitations. * No dyspnea, no cough, no chest pain. * All other systems reviewed and negative otherwise. 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 * There are no spiritual/cultural practices/values/needs that are important to know * Initial Fall Risk Screening: * MEME has not fallen in the last 6 months. * Pain Scale: On a scale of 0 to 10, the patient rates the pain at 0. * Advance directives: * Living Will: No living will on file. * Healthcare POA: No healthcare proxy on file. * Tobacco Screening: MEME does not use tobacco. Has not used tobacco in the past 6 months. * Domestic Violence Screen: Does not feel threatened or abused physically, emotionally or sexually. Do you feel UNSAFE? * The patient feels safe in the home. * Depression/Suicide Screening: * During the past 2 weeks, the patient has not felt down, depressed or hopeless. * During the past 2 weeks, the patient has not felt little interest or pleasure in doing things. * He does not have a risk of suicide. * He has not had thoughts of harming others. * Single alcohol screening question: * In the past year the patient has had 5 or more drinks (men) or 4 or more drinks (women)? 0 time(s). * Single substance abuse screening question: * In the past year the patient has used a recreational drug or used a prescription drug for non-medical reasons? 0 time(s). * Procedure or Sedation Areas: Not Applicable * Nutrition Screening: * In the past month, there was not a day when I or anyone in my family went hungry because there was not enough food. * Patient Education: The patient denies that they or the person with them has problems with hearing, speaking, seeing, moving around or learning * The patient is comfortable filling out medical forms. -[facility] Work Phone: History of Present illness Narrative* COPD CAT Assessment The numbers in the [ ] represent the number the patient selected on the CAT Assessment form * I never cough: [0] 1 2 3 4 5 I cough all the time * I have no phlegm (mucus) in my chest at all: [0] 1 2 3 4 5 My chest is full of phlegm * My chest does not feel tight at all: [0] 1 2 3 4 5 My chest feels very tight * When I walk up a hill or one flight of stairs I am not breathless: [0] 1 2 3 4 5 When I walk up a hill or one flight of stairs I am very breathless * I am not limited doing any activities at home: [0] 1 2 3 4 5 I am very limited doing activities at home * I am confident leaving my home despite my lung condition: [0] 1 2 3 4 5 I am not at all confident leaving my home because of my lung condition * I sleep soundly: [0] 1 2 3 4 5 I don't sleep soundly because of my lung condition * I have lots of energy: [0] 1 2 3 4 5 I have no energy at all * (CAT) Score: 0. * Very pleasant 31-year-old male without significant medical history presenting for follow-up on respiratory failure due to Covid infection back in April. Hospitalized in [place], discharged without oxygen need. Has recovered really well since then, back to normal life and functional status, exercising without limitations. * No dyspnea, no cough, no chest pain. * All other systems reviewed and negative otherwise. 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 * There are no spiritual/cultural practices/values/needs that are important to know * Initial Fall Risk Screening: * MEME has not fallen in the last 6 months. * Pain Scale: On a scale of 0 to 10, the patient rates the pain at 0. * Advance directives: * Living Will: No living will on file. * Healthcare POA: No healthcare proxy on file. * Tobacco Screening: MEME does not use tobacco. Has not used tobacco in the past 6 months. * Domestic Violence Screen: Does not feel threatened or abused physically, emotionally or sexually. Do you feel UNSAFE? * The patient feels safe in the home. * Depression/Suicide Screening: * During the past 2 weeks, the patient has not felt down, depressed or hopeless. * During the past 2 weeks, the patient has not felt little interest or pleasure in doing things. * He does not have a risk of suicide. * He has not had thoughts of harming others. * Single alcohol screening question: * In the past year the patient has had 5 or more drinks (men) or 4 or more drinks (women)? 0 time(s). * Single substance abuse screening question: * In the past year the patient has used a recreational drug or used a prescription drug for non-medical reasons? 0 time(s). * Procedure or Sedation Areas: Not Applicable * Nutrition Screening: * In the past month, there was not a day when I or anyone in my family went hungry because there was not enough food. * Patient Education: The patient denies that they or the person with them has problems with hearing, speaking, seeing, moving around or learning * The patient is comfortable filling out medical forms. [facility] Work Phone: History of Present illness Narrative* COPD CAT Assessment The numbers in the [ ] represent the number the patient selected on the CAT Assessment form * I never cough: [0] 1 2 3 4 5 I cough all the time * I have no phlegm (mucus) in my chest at all: [0] 1 2 3 4 5 My chest is full of phlegm * My chest does not feel tight at all: [0] 1 2 3 4 5 My chest feels very tight * When I walk up a hill or one flight of stairs I am not breathless: [0] 1 2 3 4 5 When I walk up a hill or one flight of stairs I am very breathless * I am not limited doing any activities at home: [0] 1 2 3 4 5 I am very limited doing activities at home * I am confident leaving my home despite my lung condition: [0] 1 2 3 4 5 I am not at all confident leaving my home because of my lung condition * I sleep soundly: [0] 1 2 3 4 5 I don't sleep soundly because of my lung condition * I have lots of energy: [0] 1 2 3 4 5 I have no energy at all * (CAT) Score: 0. * Very pleasant 31-year-old male without significant medical history presenting for follow-up on respiratory failure due to Covid infection back in April. Hospitalized [place], discharged without oxygen need. Has recovered really well since then, back to normal life and functional status, exercising without limitations. * No dyspnea, no cough, no chest pain. * All other systems reviewed and negative otherwise. 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 * There are no spiritual/cultural practices/values/needs that are important to know * Initial Fall Risk Screening: * MEME has not fallen in the last 6 months. * Pain Scale: On a scale of 0 to 10, the patient rates the pain at 0. * Advance directives: * Living Will: No living will on file. * Healthcare POA: No healthcare proxy on file. * Tobacco Screening: MEME does not use tobacco. Has not used tobacco in the past 6 months. * Domestic Violence Screen: Does not feel threatened or abused physically, emotionally or sexually. Do you feel UNSAFE? * The patient feels safe in the home. * Depression/Suicide Screening: * During the past 2 weeks, the patient has not felt down, depressed or hopeless. * During the past 2 weeks, the patient has not felt little interest or pleasure in doing things. * He does not have a risk of suicide. * He has not had thoughts of harming others. * Single alcohol screening question: * In the past year the patient has had 5 or more drinks (men) or 4 or more drinks (women)? 0 time(s). * Single substance abuse screening question: * In the past year the patient has used a recreational drug or used a prescription drug for non-medical reasons? 0 time(s). * Procedure or Sedation Areas: Not Applicable * Nutrition Screening: * In the past month, there was not a day when I or anyone in my family went hungry because there was not enough food. * Patient Education: The patient denies that they or the person with them has problems with hearing, speaking, seeing, moving around or learning * The patient is comfortable filling out medical forms. [facility] Work Phone: Summary Purpose Family History Unknown Family Member Name Dates Details Hypertension: Father(V17.49) Status:Active Unknown Family Member Name Dates Details Hypertension: Father(V17.49) Status:Active Unknown Family Member Name Dates Details Hypertension: Father(V17.49) Status:Active Unknown Family Member Name Dates Details Hypertension: Father(V17.49) Status:Active Unknown Family Member Name Dates Details Hypertension: Father(V17.49) Status:Active Unknown Family Member Name Dates Details Hypertension: Father(V17.49) Status:Active Advance Directives Latest Code Status on File Code Status Date Activated Date Inactivated Comments Total Support 05/20/2021 8:39 PM Additional Source Comments (unrecognized sect ion and content) No Status Records FoundNo Status Records FoundNo Status Records FoundNo Status Records FoundNo Status Records Found INFORMATION SOURCE (unrecogn ized section and content) DATE CREATED AUTHOR AUTHOR'S ORGANIZ ATION 08/21/2021 [facility] DATE CREATED AUTHOR AUTHOR'S ORGANIZ ATION 10/08/2021 [facility] DATE CREATED AUTHOR AUTHOR'S ORGANIZ ATION 01/15/2022 [facility] DATE CREATED AUTHOR AUTHOR'S ORGANIZ ATION 10/19/2022 [facility] Reason for Visit (unrecogniz ed section and content) Specialty Diagnoses / Procedures Referred By Yen franco Referred To Contact Diagnoses COVID-19 COVID-19 virus infection Referral ID Status Reason Start Date Expiration Date Visits Re quested Visits Authorized [id number] 1 1 Specialty Diagnoses / Procedures Referred By Yen franco Referred To Contact Radiology / [facility] [place] Diagnoses Neoplasm of unspecified behavior of bone, soft tissue, 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 Procedures MRI ANY JT UPPER EXTREMITY W/O CONTRAST MATRL MRI [address] [place] [id number] [address] [facility] [place] [address] [place] [id number] Referral ID Status Reason Start Date Expiration Date Visits Re quested Visits Authorized [id number] Closed 10/18/2022 11/13/2022 1 1 Scheduled Active and Recently Administ ered Medications (unrecognized section and content) Continuous Medication Order 05/22/2021 05/23/2021 05/24/2021 lactated ringers parenteral solution (CANCELED) Intravenous, CONTINUOUS, Starting on Anabel 05/21/21 at 1130, Until 05/22/21 at 1148, at 100 mL/hr 0024 (Rate Verify - Provider: Angle Kumar RN)0207 (Rate Verify - Provider: Angle Kumar RN)0652 (Rate Verify - Provider: Angle Kumar RN)1308 (Stopped - Provider: Chely Funes RN) lactated ringers parenteral solution (CANCELED) Intravenous, CONTINUOUS, Starting on Tue05/22/21 at 1155, Until 05/23/21 at 1620, at 50 mL/hr 1308 (Rate Change - Provider: Chely Funes RN) 1330 (Stopped - Provider: Chely Funes RN) PRN Medication Order 05/22/2021 05/23/2021 05/24/2021 acetaminophen (TYLENOL) tablet 650 mg 650 mg, Oral, EVERY 6 HOURS PRN, Starting on Tue05/20/21 at 2034, Until Discontinued, Pain, Fever albuterol (PROVENTIL) 90 mcg/actuation inhalation aerosol 2 Puff 2 Puff, Inhalation, EVERY 6 HOURS PRN, Starting on Tue05/21/21 at 1631, Until Discontinued, Shortness of Breath albuterol per guideline Inhalation, DO NOT DISPENSE, Starting on Tue05/20/21 at 2033, Until Discontinued, other albuterol/ipratropium per guideline with albuterol prn for triage 4 & 5 Inhalation, DO NOT DISPENSE, Starting on Tue05/20/21 at 203, Until Discontinued, other guaiFENesin (ROBITUSSIN) LIQUID 100 mg 100 mg (5 mL), Oral, EVERY 4 HOURS PRN, Starting on Tue05/22/21 at 0125, Until Discontinued, Cough 0138 (Given - Provider: Angle Kumar RN)0833 (Given - Provider: Chely Funes RN)1652 (Given - Provider: Chely Funes, TOMEKA) 1339 (Given - Provider: Chely Funes, TOMEKA)2028 (Given - Provider: Marilee Keenan RN) hypromellose (GENTEAL) 0.3% ophth gel 1 Drop 1 Drop, Each Eye, FOUR TIMES A DAY PRN, Starting on Tue05/22/21 at 0023, Until Discontinued, Dry Eyes NaCl 0.9% 1,000 mL 1,000 mL, Intravenous, CONTINUOUS PRN, Starting on Tue05/20/21 at 2032, Until Discontinued, at 10 mL/hr, other saline flush IV Push, PRN- NEEDED, Starting on Tue05/20/21 at 2032, Until Discontinued sodium chloride (DEEP SEA) 0.65 % nasal solution Nasal, PRN- NEEDED, Starting on Tue05/22/21 at 0413, Until Discontinued, Dry Nose Linked Groups Order Group 1: dexamethasone (DECADRON) 20 mg in NaCl 0.9% 50 mL ivpbJump to med 20 mg, Intravenous, DAILY, 5 doses, First dose on Tue05/22/21 at 1100, Last dose on Tue05/26/21 at 0900, at 200 mL/hr, Administer over 15 Minutes Followed by dexamethasone (DECADRON) injection 10 mgJump to med 10 mg, IV Push, DAILY, 5 doses, First dose on Tue05/27/21 at 0900, Last dose on Tue05/31/21 at 0900 Care Teams (unrecognized sec tion and content) Source Comments (unrecognize d section and content) In the event this informatio n is protected by the Federal Confidentiality of Alcohol and Drug Abuse Patient Records regulations: The Federal rules restrict any use of the information to criminally investigate or prosecute any alcohol or drug abuse patient.[facility] FOR RECORDS PERTAINING TO PATIENTS WHO ARE OR HAVE BEEN ENROLLED IN A CHEMICAL DEPENDENCY/SUBSTANCEABUSE PROGRAM, SOME INFORMATION MAY BE OMITTED. This clinical summary was aggregated from multiple sources. Caution should be exercised in using it in the provision of clinical care. This summary normalizes information from multiple sources, and as a consequence, information in this document may materially change the coding, format and clinical context of patient data. In addition, data may be omitted in some cases. CLINICAL DECISIONS SHOULD BE BASED ON THE PRIMARY CLINICAL RECORDS. [employer] [facility]. provides no warranty or guarantee of the accuracy or completeness of information in this document.
== END | disposition home or self-care (01) ==
LOC: NM 07:42
PROVIDERS: PCP Internal Medicine; Referring Provider Surgery; Visit Provider Surgery
DX: Z09 Encounter for follow-up examination after completed treatment for conditions other than malignant neoplasm (principal)
CPT/HCPCS: 78227; A9537; J2805

== ENCOUNTER → 2023-07-27 | Outpatient (CLI) | payer BC, SELFPAY ==
[2023-07-27 12:52] LABS: ALB/GLOB Ratio 1.2 RATIO (0.9-2.4); AST(SGOT) 19 U/L (15-37); Alanine Aminotransfer ALT/SGPT 44 U/L (16-61); Albumin, Serum 4.1 g/dL (3.2-5.0); Alkaline Phosphatase 90 U/L (45-117); Anion Gap 2 (5-15); BUN 12 mg/dL (7-18); BUN/Creat Ratio 13.9 RATIO (10-20); Calcium,Total 9.3 mg/dL (8.5-10.1); Chloride 109 mmol/L (98-107); Cholesterol 213 mg/dL (200); Creatinine, Serum 0.86 mg/dL (0.70-1.30); EST Glomerular Filtration Rate 107 mL/min (>60); Est Glom Filt Rate - Afr Amer 129 mL/min (>60); Globulin 3.3 g/dL (2.2-4.2); Glucose 86 mg/dL (74-106); High Density Lipoprotein 51 mg/dL; Protein, Total 7.4 g/dL (6.4-8.2); Sodium Level 139 mmol/L (136-145); Triglycerides 74 mg/dL; Very Low Density Lipoprotein 15 mg/dL (5-40)
--- OUTSIDE RECORDS SUMMARY | 2023-07-27 13:03 | XMS RPT_ITS | CCD ---
Author Name Unknown Address [address] [place] [address] Organization [facility] Care Team Providers Care [employer] Of [employer] Name Role Phone Nonstaff , [facility] Primary Care Provider [phone] Unknown, Referring Provider Unavailable Unav ailable Unavailable [...] Drug Class(es) Dates Sig (Normalized) Sig (Original) [id number] actuat albuterol 0.09 mg/actuat metered dose [...] height 175.26 cm Referring Provider Unknown [facility] [facility] Work Phone: 08-20-2021 14:04-0500 Body mass index (BMI) [Ratio] 31.96 kg/m2 Referring Provider Unknown [facility] [facility] Work Phone: 08-20-2021 14:04-0500 Body surface area Derived from formula 2.14 m2 Referring Provider Unknown [facility] Work Phone: 08-20-2021 14:04-0500 Body weight 98.18 kg Referring Provider Unknown [facility] [facility] Work Phone: 08-20-2021 14:04-0500 Diastolic blood pressure 78 mm[Hg] Referring Provider Unknown [facility] Work Phone: 08-20-2021 14:04-0500 Heart rate 65 /min Referring Provider Unknown [facility] Work Phone: 08-20-2021 14:04-0500 Respiratory rate 16 /min Referring Provider Unknown [facility] Work Phone: 08-20-2021 14:04-0500 SaO2% (BldA) [Mass fraction] 97 % Referring Provider Unknown [facility] [facility] Work Phone: 08-20-2021 14:04-0500 Systolic blood pressure 126 mm[Hg] Referring Provider Unknown [facility] [facility] Work Phone: 05-24-2021 09:37-0500 Body temperature 98.2 [degF] aZ Raphael MD Work Phone: [facility] 05-24-2021 09:37-0500 Diastolic blood pressure 62 mm[Hg] Za Raphael MD Work Phone: [facility] 05-24-2021 09:37-0500 Heart rate 52 /min Za Raphael MD Work Phone: [facility] 05-24-2021 09:37-0500 Respiratory rate 20 /min Za Raphael MD Work Phone: [facility] 05-24-2021 09:37-0500 SaO2% (BldA) [Mass fraction] 98 % Za Raphael MD Work Phone: [facility] 05-24-2021 09:37-0500 Systolic blood pressure 133 mm[Hg] Za Raphael MD Work Phone: [facility] 05-21-2021 01:32-0500 Body height 177.8 cm Za Raphael MD Work Phone: [facility] 05-21-2021 01:32-0500 Body mass index (BMI) [Ratio] 28.84 kg/m2 Za Raphael MD Work Phone: [facility] 05-21-2021 01:32-0500 Body weight 91.17 kg Za Raphael MD Work Phone: [facility] [place] Encounters Encounter Date Encounter Type Care Provider Facility Start: 10-18-2022 End: 10-18-2022 ambulatory ALEX KAY Facility:[facility] Start: 10-18-2022 End: 10-18-2022 Subsequent hospital visit by physician [facility] (I-Stat/1.5t) Work Phone: Radiology Start: 09-22-2021 AUDIT Referring Prov ider Unknown [facility] Work Phone: Start: 08-20-2021 Current tobacco non-user cad cap copd pv dm Referring Provider Unknown [facility] Work Phone: Start: 05-20-2021 End: 05-24-2021 Evaluation and management of inpatient Za Raphael MD Work Phone: [facility] - [employer] Procedures Date Procedure Procedure Detail Performing Clinician Start: 10-18-2022 Mri any jt upper ext remity w/o & w/contr matrl [facility] Provider Start: 05-24-2021 Renal function panel Sa jose roberto Maria MD Work Phone: Start: 05-23-2021 Renal function panel Sa jose roberto Maria MD Work Phone: Start: 05-22-2021 Renal function panel Sa jose roberto Maria MD Work Phone: Start: 05-21-2021 Basic metabolic [...] Phone: Start: 05-20-2021 Assay of troponin quantitative Dion Gonzalez MD Work Phone: Start: 05-20-2021 Basic [...] Work Phone: Start: 05-20-2021 EMS RUN SHEET [facility] Huy montano MD Work Phone (unformatted): [phone] Plan of Treatment Date Care Activity Detail Author Start: 2023 Lipid 1996 panel - S john or Plasma Lipid Screening [facility] Start: 02-25-2023 Influenza vaccination Influenza Vacc ine (#1) [facility] Start: 06-27-2022 Depression Assessment Depression Ass essment [facility] Start: 10-19-2021 PST, Provider: MIRYAM Rizvi PULMONARY FUNCTION TST,GRHPFT, Status: Pen, Time: 11:00 AM PST, Provider: TIM PULMONARY FUNCTION TST,GRHPFT, Status: Pen, Time: 11:00 AM [facility] Work Phone: Start: 10-19-2021 PFT, Provider: MIRYAM Rizvi PULMONARY FUNCTION TST,GRHPFT, Status: Pen, Time: 10:00 AM PFT, Provider: TIM PULMONARY FUNCTION TST,GRHPFT, Status: Pen, Time: 10:00 AM [facility] Work Phone: Start: 01-25-2021 Influenza vaccination INFLUENZA VACC INE [facility] Start: 2007 DTaP/Tdap/Td VACCINE S (1 - Tdap) DTaP/Tdap/Td VACCINES (1 - Tdap) [facility] Start: 2007 Urine microalbumin profile DTaP,Tdap,Td Vaccine (1 - Tdap) [facility] Start: 2006 HEPATITIS C SCREENING HEPATITIS C SC REENING [facility] Start: 2006 HIV Screening HIV Screening [facility] Start: 2003 HIV SCREENING HIV SCREENING [facility] Start: 2000 COVID-19 VACCINE (1) COVID-19 VACCIN E (1) [facility] Start: 1991 ANNUAL PREVENTIVE PHYSICAL (INCLUDES MAAP) ANNUAL PREVENTIVE PHYSICAL (INCLUDES MAAP) [facility] Start: 1988 Covid-19 Vaccine (#1) Covid-19 Vacci ne (#1) [facility] Start: 1988 Hepatitis B Vaccine (1 of 3 - 3-dose series) Hepatitis B Vaccine (1 of 3 - 3-dose series) [facility] Standard ECG EKG Standard EKG STAT 05/20/2021 7:22 PM EST [facility] Work Phone: Immunizations Immunization Date Immunization Notes Care Provider Jody richmond 01-09-2014 human papilloma viru s vaccine, quadrivalent; Translations: [HPV (Gardasil)] Referring Provider Unknown [facility] [facility] Work Phone: Payers Date Payer Category Payer Unknown 2021 Unknown [id number] Unknown [employer]-OUT OF AREA [id number] Effective for all dates [address] [place] [address] [id number] Social History Date Type Detail Facility Tobacco smoking stat [facility] Tobacco smoking consumption unknown [facility] Start: 05-21-2021 History SDOH Alcohol Frequency 1 [facility] Start: 05-21-2021 History SDOH Social Connections [facility] 5 [facility] Start: 05-21-2021 History SDOH Social Connections Membership 2 [facility] Start: 05-21-2021 History SDOH Physica l Activity DPW 3 [facility] Start: 1990 Sex Assigned At Not on file P [facility] Exposure to SARS-CoV -2 (event) Yes [facility] Marital History - Single Marital History - Single [facility] [facility] Work Phone: Gender identity Not on file [facility] inkavitha Clinical Notes 05-20-2021 to 10-18-2022 Kaylynn Mitchell, RT(R) - 10/18/2022 10:40 AM Minnie Clinton RN - 05/24/2021 12:17 PM Minnie Morejon RN - 05/24/2021 10:12 AM Deborah Martin RN - 05/23/2021 7:38 AM EST Note Date & Type Note Facility 10-18-2022 Note HNO ID: [id number] Author: RT Michelle(R) Service: ? Author Type: [...] DATE: October 18, 2022 TIME: 11:19 AM [facility] 10-18-2022 History of Present illness Narrative [...] TIME: 11:19 AM documented in this encounter [facility] 05-24-2021 Nurse Note Verbal and written D/C [...] and gave update. documented in this encounter [facility] 05-24-2021 History of Present illness Narrative Resp eval. RA; lungs decreased, clear; strong NPC. 1750 with ISE, encouraged Q1 use; no other acute resp indicators at this time, resp eval d/c'd. Electronically signed by: Favio Stubbs RCP, 05/24/2021 11:12 AM [facility] Hospitalist Progress Note Ruel Maria Please communicate with secure chat from 7AM to 7PM, Please page sales lead interventionist after 7PM Patient Name: Meme Campbell : [...] lazaraay to DC isolation. Transfer out of [facility]. Diet: Regular IVF discontinued GI ppx: PPI DVT Prophylaxis: Lovenox Orders Placed This Encounter Total Tennis Court Attendant input reviewed. Chart ,labs ,imaging and other pertinent notes reviewed. Plan of care discussed with patient, RN Reviewed CT chest Images with patient. Transfer out of [facility]. Subjective Pt. seen and examined. [...] Patient Name: Meme Campbell : 1990 Contact ID/[facility] Physician interventionist via [employer] Secure Chat Impression: COVID-19 infection: Onset of [...] if FiO2 >10L Ok to transfer off [facility] today History: Afebrile, O2 improved [...] Electronically signed by: Beatris Brito APRN, 05/23/2021 [facility] Progress Note Patient discussed during interdisciplinary rounds with Nurse regional marketing manager, case checker, neonatal social worker, bedside nurse, physician, and therapist. Barriers to discharge: IV dexamethasone, 7L/NC, febrile DC plan: home Estimated DC Date: May 24, 2021 Electronically signed by: Clemente Dias RN, BSN, Bank Sales And Service Manager, Phone [phone], 05/22/2021 10:52 AM Weekday Office Hours: 8:30-5:00. Holiday/Weekends [phone]. For urgent needs between 5p-7p, please call [phone]. If after 7pm, please call [facility] AO at [phone] or [facility] AO at [phone]. 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/HRRU Physician interventionist via [employer] Secure Chat Impression: COVID-19 infection: Onset of [...] Electronically signed by: Beatris Brito APRN, 05/22/2021 [facility] Hospitalist Progress Note Ruel Maria Please communicate with secure chat from 7AM to 7PM, Please page sales lead interventionist after 7PM Patient Name: Meme Campbell : [...] Prophylaxis: Lovenox Orders Placed This Encounter Total Tennis Court Attendant input reviewed. Chart ,labs ,imaging and other [...] by: Ruel Maria MD, 05/22/2021 8:49 AM [facility] Bank Sales And Service Manager Opening Interview Progress Note Presents for evaluation/treatment of SOB, was diagnosed w/ Covid 05-19 w/ symptoms starting 8 days prior. No prior medical history. Called into pt room and spoke w/ Meme Campbell who is a 31 year old male via telephone. Introduced self and role of case checker; asked for and received permission to discuss [...] Pt states family just moved up to [place] from [place]. He lives in [place], [place] however says he can stay local at his mother's cousin's apartment in [place] post discharge. Baseline Activity: Independent,Drives Car Current DME Equipment:DME: None Current home oxygen needs (Frequency, Liters, supplier): none Passport/Waiver Services: no If yes, case checker name/number:n/a Transportation needs at discharge: car PCP Name : none Patient to have prescriptions filled at [facility] Outpt Pharmacy at dc: Yes DC plans: [...] discharge. Electronically signed by: Leandra Edmonds RN, Bank Sales And Service Manager, Phone [phone], 05/21/2021 10:17 AM Weekday Office Hours: 8:30-5:00. Holiday/Weekends [phone]. For urgent needs between 5p-7p, please call [phone]. If after 7pm, please call [facility] AO at [phone] or [facility] at [phone]. [facility] Hospitalist Progress Note Ruel Maria Please communicate with secure chat from 7AM to 7PM, Please page sales lead interventionist after 7PM Patient Name: Meme Campbell : [...] Prophylaxis: Lovenox Orders Placed This Encounter Total Tennis Court Attendant input reviewed. Chart ,labs ,imaging and other [...] 05/21/2021 9:00 AM documented in this encounter [facility] 05-24-2021 Hospital course Narrative Images from the original note were not included. [facility] Patient Identifier/Hospitalist Patient: Meme Campbell; 1990 DATE ADMITTED: 05/20/2021 PHYSICIANS CONSULTED: PCP: Ana, [facility] [phone] I saw and examined the [...] Patient seen and examined at bedside in [facility]. Patient without complication last night. Patient [...] 05/24/2021 9:14 AM documented in this encounter [facility] 05-21-2021 Miscellaneous Notes Problem: Falls - Risk of Goal: Absence of falls Description: Avoid the routine use of bedrails or physical restraints as a fall-prevention intervention. Outcome: Progressing Problem: Anxiety Goal: Able to identify anxiety triggers Outcome: Progressing documented in this encounter [facility] 05-21-2021 Consult note COVID-19/Infectious Diseases Progress Note 05/21/2021 Patient Name: Meme Campbell : 1990 Contact ID/HRRU Physician interventionist via Be[employer] Secure Chat Impression: COVID-19 infection: Onset of [...] 05/21/2021 7:36 PM documented in this encounter [facility] 05-21-2021 Emergency department Note Report called to [...] Alert and oriented x 3. Skin hot/dry. [facility] EMERGENCY DEPARTMENT RESIDENT NOTE TRIAGE CHIEF COMPLAINT: [...] Emergency Medicine, PGY-1 05/20/2021, 7:53 PM Bed: [facility] Expected date: Expected time: Means of arrival: Comments: documented in this encounter [facility] 05-20-2021 Note HISTORY: COUGH, SHOR [...] Dictated by Estuardo Sanchez MD, PhD Workstation ID:[id number] Pt arrived via medic with c/o SOB, cough x 8 days. COVID positive yesterday. Per medic, patient O2 85% on room air when picked up. Currently 94% on 3L/NC. Respirations shallow. Alert and oriented x 3. Skin hot/dry. [facility] 05-20-2021 Note HISTORY: COUGH, SHOR TNESS OF [...] limits. There is no significant pericardial effusion. [facility] 05-20-2021 History and physical note Images from the original note were not included. [facility] History & Physical 05/20/2021 Patient [...] 05/20/2021 7:38 PM documented in this encounter [facility] Chief complaint Narrative - Reported MEME CAMPBELL is here for an initial evaluation.Reason for Visit: post covid. [facility] [address] Work Phone: Chief complaint Narrative - Reported MEME CAMPBELL is here for an initial evaluation.Reason for Visit: post covid. [facility] [place] [address] [facility] Work Phone: Chief complaint Narrative - Reported MEME CAMPBELL is here for an initial evaluation.Reason for Visit: [facility] Work Phone: [facility] Narrative* COPD CAT Assessment [...] Covid infection back in April. Hospitalized in [place], discharged without oxygen need. Has recovered really well since then, back to normal life and functional status, exercising without limitations. * No dyspnea, no cough, no chest pain. * All other systems reviewed and negative otherwise. 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 * There are no [...] Covid infection back in April. Hospitalized in [place], discharged without oxygen need. Has recovered really well since then, back to normal life and functional status, exercising without limitations. * No dyspnea, no cough, no chest pain. * All other systems reviewed and negative otherwise. 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 * There are no [...] Covid infection back in April. Hospitalized in [place], discharged without oxygen need. Has recovered really well since then, back to normal life and functional status, exercising without limitations. * No dyspnea, no cough, no chest pain. * All other systems reviewed and negative otherwise. 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 * There are no [...] patient is comfortable filling out medical forms. [facility] Work Phone: Summary Purpose Family History Unknown [...] DATE CREATED AUTHOR AUTHOR'S ORGANIZ ATION 10/08/2021 [facility] DATE CREATED AUTHOR AUTHOR'S ORGANIZ ATION 01/15/2022 [facility] DATE CREATED AUTHOR AUTHOR'S ORGANIZ ATION 10/19/2022 [facility] Reason for Visit (unrecogniz ed section and content) Specialty Diagnoses / Procedures Referred By Yen franco Referred To Contact Diagnoses COVID-19 COVID-19 virus infection Referral ID Status Reason Start Date Expiration Date Visits Re quested Visits Authorized [id number] 1 1 Specialty Diagnoses / Procedures Referred By Yen franco Referred To Contact Radiology / [facility] [place] Diagnoses Neoplasm of unspecified behavior of bone, soft tissue, 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 [employer] [facility]. provides no warranty or guarantee of the accuracy or completeness of information in this document.
== END | disposition home or self-care (01) ==
PROVIDERS: PCP Internal Medicine; Visit Provider Internal Medicine
DX: Z13.6 Encounter for screening for cardiovascular disorders (principal)
CPT/HCPCS: 36415; 80053; 80061

== ENCOUNTER 2023-10-21 05:59 | Day surgery (SDC) | payer BC, SELFPAY ==
[2023-10-21] VITALS (10 sets, daily range): BP systolic 114–166; BP diastolic 71–109; PULSE 67–83; RESP 14–18; TEMP 35.9–36.7; O2SAT 96–99; BMI 31.5
--- NOTE | 2023-10-21 06:30 | RAD_ITS ---
STUDY: INTRAOPERATIVE CHOLANGIOGRAM. REASON FOR EXAM: Male, 33 years old. Laparoscopic cholecystectomy. FLUOROSCOPY TIME (if supplied): ( 32.9 seconds ) minutes/seconds. 14 mGy. TECHNIQUE: An intraoperative cholangiogram was performed by the surgeon. Imaging was submitted. COMPARISON: None. FINDINGS: Unremarkable intrahepatic and extrahepatic biliary ducts. No intraluminal filling defect is seen. There is free flow of contrast into the duodenum. RAD/Cholangiogram/ O R,Initial IMPRESSION: Unremarkable intraoperative cholangiogram. Electronically Signed: Ector Morales MD at 10:16 EDT ,
[2023-10-21] MEDS: Lactated Ringers 1,000 ML 15 ML IV (06:51)
--- NOTE | 2023-10-21 06:53 | PCM.HP.BLA ---
History and Physical Date of Admission: 10/21/23 Date of Service: 09/22/23 MR#: [id number] Acct: [id number] Name: MEME PHAN Rep #: [id number] : 1990 Provider: Dr. 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 Is patient in pain?: No Allergies remdesivir Adverse Reaction (Verified 09/22/23 13:38) Other Medications omeprazole 20 mg capsule,delayed release 20 mg PO DAILY #14 caps 07/28/23 [Rx Confirmed 09/22/23] PFSH Medical History COVID-19 Dietary restriction History of stress test Non-smoker Umbilical hernia Vasovagal episode Wears glasses Surgical History History of umbilical hernia repair Hx of foot surgery Status post umbilical hernia repair, follow-up exam Family History Other No pertinent family history Social History household members: family current occupational status: employed 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 He presents today for follow-up of ongoing gallbladder discomfort. He underwent HIDA imaging on 06/24/2023 which showed an ejection fraction of just 15%. He has discussed some discomfort of his right upper quadrant with his primary care provider and they suggested we discuss his gallbladder further. Mr. Phan words he shares that he ended up with the flu shortly after undergoing some CT imaging and had significant coughing with pulling in his right upper quadrant. He shares that there were several occasions when simply taking a deep breath triggered pain. He notes that he then had to take care of some business in [place] and ended up with some throbbing pain in this region for up to 3 hours. After that he has been avoiding foods such as potato chips and oils. Otherwise he is doing normal foods and finds episodic discomfort. He also notes that this pain seems to be present when working out. He states that the pain is rarely accompanied by nausea, but recently had a layover at the airport when his plane was requiring maintenance and he had an exceptional amount of food with some associated nausea. He does confirm that he also had been drinking more caffeine than usual and believes that his discomfort may be linked to both eating and caffeine intake. Lastly he describes this pain as being associated with some radiating numbness to his back. Below is recapitulated from patient's prior visit for his review: Patient follows up from a 06/10/2023 second postoperative visit following open umbilical hernia repair with mesh and performance of a HIDA scan on 06/24/2023 due to suspicion for possible underlying gallbladder dysfunction.? Today he reports with his father.? Immediately, he hands over a very detailed food diary but goes on to state that his gallbladder pain is gone.? He notes that his pain now is just periumbilical.? He shares that this pain seems to be lessened with standing but exacerbated with movement such as twisting or reaching overhead.? He also shares that he has been trying to eat less so as to keep his stomach away from the mesh.? He confirms that the burning pain that he had on both sides of his umbilicus has dissipated.? He also has not noticed any recent nausea in response to food.? When asked specifically about his recent HIDA imaging he distinguishes that he had nausea but no pain with the administration of the CCK.? Lastly he adds that he has been trying to see where his postoperative fitness has drifted and shares that just a couple of days ago he was capable of doing 80 pounds on bent rows. ROS General General: Yes weight change; No appetite, fatigue, colon cancer, breast cancer or weakness HEENT HEENT: No difficulty swallowing, eye injury, eye surgery, swollen glands or hoarseness Endo Endocrine: No thyroid disease, diabetes mellitus, thyroid cancer, Hair loss, heat intolerance or cold intolerance Skin Skin: No rash or changing moles Musc Musculoskeletal: No back problems, arthritis, rheumatoid arthritis, gout or joint pain Cardio Cardiovascular: No murmur, pacemaker, heart disease, atrial fibrillation, high blood pressure, heart attack, heart stent, palpitations, shortness of breat with exertion or chest pain Psych Psychiatric: No depression, anxiety or hearing voices Resp Respiratory: No shortness of breath, No sleep apnea, No cough, No COPD, No asthma, No emphysema and No wheezing Gastro Gastrointestinal: Yes abdominal pain, Yes nausea or vomiting, No diarrhea, No constipation, No blood in stool, No acid reflux, No hemorrhoids, No ulcers, Yes gallbladder problem and No black,tarry stools Garry Hematologic: No blood thinners, No blood disorders, No bleeding, No anemia and No blood clots Neuro Neurologic: No system reviewed and no additional complaints, except as documented, No as per HPI, No abnormal gait, No abnormal hearing, No abnormal movements, No abnormal speech, No behavioral changes, No burning sensations, No confusion, No convulsions, No disequilibrium, No dizziness, No localized weakness, No frequent falls, No headache(s), No lack of coordination, No loss of vision, No memory loss, No numbness, No other visual disturbances, No radicular pain, No restless legs, No sensory deficit, No syncope, No tingling, No tremor(s), No weakness and No other Exam Const General: cooperative and comfortable Nutritional Appearance: overweight Orientation: alert, awake and oriented x3 Resp Effort & Inspection: normal respiratory effort GI Other: Nondistended, hirsute, soft, minimally tender to palpation in the right upper quadrant but otherwise exam is unremarkable Assessment and Plan Assessment and Plan (1) Abnormal biliary HIDA scan: Status: Acute Comment: HIDA was performed 06/24/2023 and was read by nuclear medicine as abnormal due to a calculated ejection fraction of 15%. However, patient denies any increase in his pain symptoms with CCK administration and goes on to provide an extensive food diary inclusive of numerous sources of animal protein/cholesterol which have not led to any abdominal pain. In fact, Mr. Phan reports complete resolution of this discomfort. With this update I have shared with him I do not find probable cause to pursue cholecystectomy and recommend simply watchful waiting and tried to give appropriate priority to a diagnosis of biliary dyskinesia. Mr. Phan and his father expressed satisfaction with this explanation and pledged to let us know if his right upper quadrant discomfort returns. Update 09/22/2023: As above, patient with abnormal HIDA imaging and reports of ongoing right upper quadrant discomfort that is mostly postprandial in onset. Patient also describes some pleuritic pain of his right chest wall. Therefore, I am suspicious for both biliary dyskinesia as well as some costochondritis. He confirms that the chest wall discomfort is improving since his cough has dissipated, but continues to remark of uncomfortable pain that radiates to his back. He is minimally tender on exam and I have shared with him that this is a distinction from a consideration of cholecystitis where there would be binh inflammation to irritate the peritoneum on exam. Thus, I am convinced that he is symptomatic from his gallbladder dysfunction and the frequency of the symptoms suggest that he would benefit from cholecystectomy. This recommendation was extended and I described the procedure in detail. I outlined postoperative expectations as well and specifically discussed activity limitations as well as dietary restrictions. Mr. Phan initially shared an inclination to hold off on surgery and see if he could manage, however, I had to confess to him that I was concerned his gallbladder dysfunction would only grow and potentially warrant more of an emergency evaluation. He states that he has heard this independently from others and, together, we agreed that his line of work is not very conducive to emergency situations. Thus, he agreed to plan for surgery sooner than later. Plan: Plan for outpatient laparoscopic cholecystectomy with intraoperative cholangiography I have examined the patient and the H&P has been reviewed. There are no clinical changes since date of exam. Patient has several questions related details of the procedure. He is also holding out on signing his consents until he has had the opportunity ask anesthesia similar questions. I did review that we may be planning for an observational stay following the procedure depending on patient's pain control. Both he and his father expressed understanding of information communicated. Will plan to proceed to the operating this room this morning for laparoscopic cholecystectomy with intraoperative cholangiogram.
--- NOTE | 2023-10-21 07:30 | GALL_PTH ---
PATIENT: MEME PHAN [place] [facility] [place][id number] AGE/SX: 33/M ROOM: RE10/21/[address]: Dr. Margarito Maciel MD : 1990 BED: DIS: 10/21/2023 SPEC #: [id number] RECD: 10/21/23 11:09 STATUS: LELE FELIZ #: [id number] ELINA: 10/21/23 07:[address]: Margarito Maciel DEPT: SURGICAL PATHOLOGY RECD BY: Zoie Radford ENTERED: 10/21/23 12:03 SP TYPE: DENTON MEDLEY DR: Dr. Ct Young MD Tissues: Gallbladder, NOS Procedures: Surgery Specimen Level III HEADER OPERATION: Laparoscopic, Cholecystectomy with IOC PRE-OP DIAGNOSIS: Abnormal biliary HIDA scan TISSUE SUBMITTED: Gallbladder MICROSCOPIC DIAGNOSIS Gallbladder, cholecystectomy: Chronic cholecystitis and cholelithiasis. AM/mr 10/25/2023 MICROSCOPIC DESCRIPTION Slides are reviewed. GROSS DESCRIPTION Received is one container labeled with the patient's name and designated gallbladder. The specimen consists of a gallbladder measuring 7.0 cm in length and up to 3.5 cm in diameter. The external surface is pink-mcguire, smooth and glistening for the most part. Focally it is granular, hemorrhagic and contains cautery artifact. The gallbladder contains green-yellow mucoid bile and one small brownish-black stones measuring in aggregate 0.2 cm in greatest dimension and sludge material. The mucosa is bile-stained and without any mass lesions. The gallbladder wall measures up to 0.5 cm in thickness. Increased amount of subserosal fat is also noted. [employer] sections from the gallbladder and the cystic duct are submitted in one cassette. / BELEN: 10/21/23 TC:3 [facility]: [id number]
[2023-10-21] MEDS: Cefazolin 2 GM in 0.9% Normal Saline (100mL Bag) 100 ML IV (07:46)
--- NOTE | 2023-10-21 09:16 | OP.PCM_ITS ---
Report of Operation Date of Procedure: 10/21/23 Pre-Operative Diagnosis: Biliary dyskinesia Post-Operative Diagnosis: Biliary dyskinesia With chronic cholecystitis Surgery/Procedure Performed:: Laparoscopic cholecystectomy with intraoperative cholangiogram Description of Surgical Findings:: ? Evidence of chronic cholecystitis with increased adiposity deposit around the infundibular portion of the gallbladder ? Normal gallbladder anatomy with single cystic duct and cystic artery ?cystic duct draining into common bile duct with unobstructed flow through the ampulla Vater into the duodenum via cholangiogram. There is also retrograde ryanne w through the common hepatic duct system without extravasation. Surgeon: Margarito Maciel Type of Anesthesia: General/Supplemental Anesthesiologist: Ferny Wilson Specimen's removed: Gallbladder Drains: None Estimated Blood Loss (mL): 10 Description of Procedure: After proper identification in the preoperative holding area the patient was brought to the operating room where he was positioned supine on the operating room table. Preoperatively SCDs were placed and antibiotics were administered. General anesthesia was then induced. Patient's abdomen was prepped and draped in usual sterile fashion. A formal timeout was conducted to confirm both patient and the procedure. Procedure was begun with a supraumbilical incision which was extended deeply down to the level of the fascia. The fascia was elevated and incised, as well as the peritoneum. A finger sweep was performed to ensure there were no underlying adhesions and a 12 mm balloon trocar was inserted. Pneumoperitoneum was established at 15 mmHg. Three additional trocars (all 5 mm) were placed in the epigastrium and in the right upper quadrant. Inspection of the peritoneum revealed no inadvertent injury to the viscera below. The gallbladder was visualized with evidence of mild chronic inflammation. The gallbladder fundus was then grasped and elevated cephalad. Then, using careful dissection the peritoneum was opened and the structures of the hepatocystic triangle were delineated. Once the critical view of safety was obtained, the cystic duct was singly clipped and partially divided with a ductotomy. The proximal duct was milked of any debris and there was backflow of bile. Using an Veras Wilton clamp, a cholangiocatheter was fed into the proximal segment of the cystic duct and clamped into place. This process proved more challenging than usual given the small size of the patient's duct. Under fluoroscopy a cholangiogram was then obtained showing a standard length cystic duct flowing into a common bile duct with unobstructed antegrade flow of contrast into the duodenum. There was also retrograde flow through the common hepatic duct into the right and left hepatic ducts. Satisfied with this result, the cholangiocatheter was withdrawn and the proximal cystic duct was sealed with clips and the cystic duct was completely transected. The same process was used for the cystic artery. The gallbladder was then removed from the gallbladder fossa with the use of electrocautery. As the gallbladder was removed there was what appeared to be a secondary artery supplying the posterior body of the gallbladder that was clipped and sharply divided. Unfortunately while applying traction to the gallbladder to remove it from the fossa an inadvertent rent was made in the body of the gallbladder resulting in local spillage of bile which was promptly suctioned from the peritoneum using laparoscopic suction air conditioning mechanic industrial device. Selective electrocautery was used to obtain hemostasis in the gallbladder fossa. The gallbladder was placed in an Endo Catch bag and removed from the peritoneum. Morison's pouch was irrigated and the effluent was suctioned free of the peritoneum. Hemostasis was again confirmed. Several pictures were obtained of patient's prior umbilical hernia surgical site at his request showing good incorporation of his mesh. I then proceeded with closure of the supraumbilical port site under laparoscopic visualization using a #1 PDS and a Santo Colbert suture passer. Pneumoperitoneum was evacuated and the fascia of the supraumbilical port site was tied. However, I then set about obtaining hemostasis from some oozing above the level of the fascia at this port site and applied selective cautery that resulted in disruption of the suture. Thus patient's fascia was reclosed in an open fashion using 0 Vicryl in a [id number] technique. A total of 30 mL of anesthetic was injected at the port sites for postoperative pain control. The skin of each port site was then closed in subcuticular fashion using 4-0 Monocryl. Steri-Strips and bandages were applied as dressings. Patient tolerated the procedure well without any apparent complications. On emergence from their anesthetic the patient was taken to PACU for ongoing recovery. Grafts/Implants Used: None Complications None Admit VTE Documentation VTE Mechan Device Prophylaxis: SCD's Procedures Digestive 40xxx-49xxx: [id number] Laparo cholecystectomy/graph
[2023-10-21] MEDS: Bupiv/Epi 0.25% 30 ML Vial (09:19)
--- NOTE | 2023-10-21 09:19 | DCINST_ITS ---
Discharge Instructions Diet Discharge Diet: No restrictions Activity Discharge Activity: May Not Drive (No driving while using narcotic pain medication) and May Shower (Postoperative day 1) May shower in (days): 2 Ice area for (Minutes): 20 Lifting Restrictions: No lifting greater than 15 pounds for 2 weeks after surgery Dressing / Incision Call your doctor if your incision/area has: Continuous Slow Oozing, Increased Pain/ Swelling, Increased Redness, Foul Smelling Discharge and Swelling at the incision site Call your doctor if you observe: Fever of 101 or Higher Remove Dressing in: 2 days (Please leave Steri-Strips intact until they fall off spontaneously or are taken off at your follow-up visit) Cleanse incision/area with: Soap & Water Follow Up Care Please Follow Up With: Margarito Maciel MD When: 7-10days postop Test Results: Test results from this visit will be discussed in further detail at your follow- up appointment, if applicable. Discharge Plan Admission Primary Reason for Your Visit: Gallbladder removal Attending Provider: Margarito Maciel Primary Care Provider: Ct Young Discharge Orders/Prescriptions Prescriptions: New oxycodone 5 mg tablet 5 mg PO Q6H PRN (Reason: pain) 5 Days Qty: 14 0RF Referrals / Follow Up: Ct Young MD [Primary Care Provider] - Disposition Disposition (needs filled in before D/C Order can be placed): Home, Self Care
[2023-10-21] MEDS: Acetaminophen 325 MG Tablet 650 MG PO (12:21)
== END 2023-10-21 14:22 | disposition home or self-care (01) ==
LOC: SDC 06:00 → AC 06:00
PROVIDERS: PCP Internal Medicine; Referring Provider Surgery; Visit Provider Surgery
PROC: (CPT 47610; principal; 2023-10-21 07:10)
DX: K80.10 Calculus of gallbladder with chronic cholecystitis without obstruction (principal); K82.8 Other specified diseases of gallbladder; Z98.890 Other specified postprocedural states
CPT/HCPCS: 47563; 00790; 74300; 76000; 88304; J7120; J2405

== ENCOUNTER 2024-04-13 08:53 | Emergency (ER) | payer BC, SELFPAY ==
[2024-04-13 08:54] VITALS: BP 135/79; PULSE 76; RESP 16; TEMP 36.4; O2SAT 98; BMI 33.2
--- NOTE | 2024-04-13 09:40 | RAD_ITS ---
STUDY: X-RAY - RIGHT SHOULDER REASON FOR EXAM: Male, 34 years old. Pain TECHNIQUE: 4 view(s) of the shoulder. COMPARISON: None. FINDINGS: Normal glenohumeral articulation. Normal acromioclavicular joint. Normal acromion. Normal humeral head and visualized proximal humerus. There is periarticular soft tissue calcification consistent with a calcific tendinitis. There is no demonstrated fracture. Normal visualized pulmonary apex. RAD/Shoulder min 2 Views IMPRESSION: Calcific tendinopathy of the rotator cuff. Electronically Signed: Earl Mccord MD at 9:53 EDT ,
[2024-04-13] MEDS: Ketorolac 30 MG/ML Syringe IM (10:08)
--- NOTE | 2024-04-13 10:25 | EX.ED.UPPERE ---
HPI History of Present Illness Chief Complaint: Upper Extremity Injury Narrative Narrative: Chief complaint and HPI: Left shoulder/arm pain. 34-year-old male without any significant past medical history presents for evaluation of left shoulder/upper arm pain. 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 He states that he was at a hotel in [place] lifting weights. He states that he had no trouble at that time. He states shortly after he developed left shoulder/upper arm pain. He states it is progressively worsened. Pain is worse with movement. He denies any numbness or tingling. Denies any hand, wrist, elbow pain. Denies any fever, chills, chest pain, shortness of breath abdominal pain, nausea, vomiting. Has been taking Advil at home. Review of systems: See HPI Medications: As listed on the chart Allergies: As listed on the chart PFSH: Per chart Vital signs: As listed on the chart. Reviewed. Physical exam: Gen: A&O x3, NAD Head: Normocephalic, atraumatic Eyes: No sclera icterus, conjunctiva clear ENT: Moist mucous membranes Neck: Trachea midline, No JVD CV: RRR, no murmurs, no peripheral edema Resp: Lungs CTA BL, no w/r/c Musc: Full ROM of all extremities except for the left upper extremity secondary to shoulder pain, he has full active and passive range of motion of the fingers, hand, wrist, elbow. Minimal active and passive range of motion of the left shoulder. Patient's pain worsens with internal/external rotation and abduction of the upper extremity. Mild tenderness to palpation of the upper arm. No shoulder joint tenderness. No clavicle tenderness. Biceps tendon intact. Good capillary refill. Radial/ulnar pulses plus 2 out of 4. Good capillary refill. Sensation intact. Skin: Warm, dry Neuro: Alert, oriented, grossly intact, sensation intact Psych: Cooperative, appropriate mood and affect [facility] Medical History Nausea COVID-19 Wears glasses Dietary restriction Non-smoker History of stress test Umbilical hernia Home Medications ?Medication ?Instructions ?Recorded ?Last Taken ?Type NK 12/07/23 Unknown History Allergy/AdvReac Type Severity Reaction Status Date / Time midazolam (From Versed) AdvReac Mild UNCOMFORTABLE, Verified 04/13/24 08:54 DOESN'T LIKE IT remdesivir AdvReac FAMILY Verified 04/13/24 08:54 ALLERGIC REACTION Family History Other No pertinent family history Surgical History (Updated 12/07/23 @ 16:[address] 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 Smoking Status: Never smoker Electronic Cigarette Use: not used alcohol intake: current alcohol intake frequency: holidays/special occasions only substance use type: does not use what type of physical activity do you participate in: none seatbelt use: always do you feel safe at home: Yes EXAM Physical Exam Const Vital Signs: 04/13/24 08:54 Temperature 97.6 F L Temperature Source Temporal Pulse Rate 76 Respiratory Rate 16 Blood Pressure 135/79 H Blood Pressure Mean 97 Pulse Ox 98 Oxygen Delivery Method Room Air MDM MDM MDM Narrative Medical decision making narrative: 34-year-old male presents for evaluation of left shoulder/upper extremity pain. Patient drove today therefore narcotics and muscle relaxers not given. Will give IM Toradol. Differential diagnosis includes but is not limited to rotator cuff tear, tendinopathy, suspect less likely shoulder dislocation or fracture. X-ray of the left shoulder obtained. X-ray reviewed. See below. Patient's pain may be secondary to calcific tendinopathy of the rotator cuff versus rotator cuff tear. I cannot officially rule out a rotator cuff tear without MRI. Patient already has an appointment with an orthopedic physician in [place] on Tuesday. Will provide a sling for comfort although patient was educated that he still needs to periodically move his shoulder and his arm to avoid frozen shoulder. Ibuprofen as needed for pain. Patient did receive Toradol here and was educated that he cannot take ibuprofen in 8 hours. He confirmed understanding. Patient has been only taking 200 mg of ibuprofen. He was told to take 600 mg and make sure to not take it on an empty stomach. He confirmed understanding the plan. Patient is to refrain from flying until cleared by orthopedic physician given that he cannot really move his left upper extremity. He confirmed understanding. Diagnostic: Interpreted by me/EM physician: 4 view x-ray of the shoulder shows no fracture or dislocation. Normal joint alignment. Patient has calcific tendinopathy of the rotator cuff. Impression: 1. Calcific tendinopathy of the rotator cuff 2. Possible rotator cuff tear Radiography Diagnostic Testing: Clinical Impression(s) from Imaging Studies Shoulder X-Ray 04/13/24 09:40 IMPRESSION: Calcific tendinopathy of the rotator cuff. Electronically Signed: Earl Mccord MD at 9:53 EDT , Discharge Plan Triage Chief Complaint: Upper Extremity Injury ED Provider: Raymon Horowitz Dx/Rx/DC Orders Prescriptions: No Action NK Primary Care Provider: Ct Young Referrals: Ct Young MD [Primary Care Provider] - Print Language: Rwandan
[2024-04-13 11:03] VITALS: BP 129/82; PULSE 75; RESP 16; TEMP 36.6; O2SAT 97
[2024-04-13 11:23] VITALS: BP 120/77; PULSE 77; RESP 16; TEMP 36.6; O2SAT 99
== END 2024-04-13 11:26 | disposition home or self-care (01) ==
PROVIDERS: Emergency Provider Surgery; PCP Internal Medicine; Visit Provider Surgery
DX: M75.32 Calcific tendinitis of left shoulder (principal); X50.0XXA Overexertion from strenuous movement or load, initial encounter; Y93.B9 Activity, other involving muscle strengthening exercises; Y92.59 Other trade areas as the place of occurrence of the external cause
CPT/HCPCS: 73030; 96372; 99283

== ENCOUNTER → 2024-07-04 | Outpatient (CLI) | payer BC, SELFPAY ==
--- NOTE | 2024-07-04 12:29 | CT_ITS ---
STUDY: CT ABDOMEN AND PELVIS WITH CONTRAST REASON FOR EXAM: Male, 34 years old. Periumbilical/epigastric pain, s/p UMBILICAL hernia repair AND GB RADIATION DOSAGE (If Supplied By Facility): CTDIvol = ( 14.22 ) mGy, DLP = ( 1193.65 ) mGycm TECHNIQUE: Transaxial images were obtained from the dome of the diaphragm to the symphysis pubis with oral contrast. Oral and amp; IV Readi-CAT and amp; 100mL Isovue-300 was administered. Sagittal and coronal images were reconstructed. Individualized dose optimization techniques were used for this CT. COMPARISON: None. FINDINGS: The visualized lung bases are unremarkable. The visualized portions of the heart are within normal limits. There is decreased attenuation of the liver consistent with steatosis. Stable 1 cm cyst in the central portion of the right lobe of the liver. There are surgical clips in the gallbladder fossa consistent with a prior cholecystectomy. Normal spleen. Normal pancreas. Normal bilateral adrenal glands. Normal right kidney. Normal left kidney. Normal visualized stomach. Normal small intestine. Normal colon. The appendix is visualized and appears normal. Normal abdominal aorta. Normal inferior vena cava. Normal retroperitoneum. Normal urinary bladder. Evidence of prior umbilical hernia repair. Normal osseous structures. CT/Abdomen/Pelvis WITH Contrast IMPRESSION: Evidence of prior umbilical hernia repair. No acute abnormality is seen. Electronically Signed: Ector Morales MD at 14:57 EST ,
== END | disposition home or self-care (01) ==
LOC: CT 12:28
PROVIDERS: PCP Internal Medicine; Referring Provider Internal Medicine; Visit Provider Internal Medicine
DX: K42.9 Umbilical hernia without obstruction or gangrene (principal); R10.13 Epigastric pain
CPT/HCPCS: 74177; Q9967

== ENCOUNTER → 2025-04-11 | Outpatient (CLI) | payer BC, SELFPAY ==
[2025-04-11 10:31] LABS: Hematocrit 48.1 % (40-54); Hemoglobin 16.7 g/dL (13.0-16.5); Immature Granulocytes Count 0.020 X10^3/uL (0.0-0.0); Mean Corp Hgb Conc 34.7 g/dL (32-36); Mean Corpuscular Volume 85.7 fL (80-94); Mean Platelet Vol. 9.3 fl (6.2-12.0); NRBC Flagged by Analyzer 0 % (0-5); Platelet Count 313 K/mm3 (150-450); RBC Distribution Width CV 11.7 % (11.6-14.6); RBC Distribution Width SD 36.4 fl (35.1-43.9); Red Blood Count 5.61 M/mm3 (4.6-6.2); White Blood Count 6.8 K/mm3 (4.4-11.0)
[2025-04-11 11:34] LABS: AST(SGOT) 24 U/L (<=37); Alanine Aminotransfer ALT/SGPT 48 U/L (<=46); Albumin, Serum 4.8 g/dL (3.5-5.0); Alkaline Phosphatase 76 U/L (40-129); Anion Gap 10 (5-15); BUN 14 mg/dL (4-19); BUN/Creat Ratio 15.7 RATIO (10-20); Calcium,Total 9.8 mg/dL (7.6-11.0); Carbon Dioxide 26.7 mmol/L (21.0-32.0); Chloride 101 mmol/L (98-108); Cholesterol 254 mg/dL (<=200); Globulin 2.9 g/dL (2.2-4.2); Glucose 91 mg/dL (70-99); Low Density Lipoprotein Calc. 178 mg/dL; Potassium 4.0 mmol/L (3.3-5.1); Triglycerides 154 mg/dL; Very Low Density Lipoprotein 31 mg/dL (5-40); cholesterol:hdl ratio screen 5.56
== END | disposition home or self-care (01) ==
PROVIDERS: PCP Internal Medicine; Referring Provider Internal Medicine; Visit Provider Internal Medicine
DX: Z00.00 Encounter for general adult medical examination without abnormal findings (principal); E78.2 Mixed hyperlipidemia
CPT/HCPCS: 36415; 80053; 80061; 85025; 86003

== ENCOUNTER → 2025-04-17 | Outpatient (CLI) | payer BC, SELFPAY ==
--- NOTE | 2025-04-17 11:08 | US_ITS ---
PROCEDURE: TESTICULAR WITH ARTERIAL FLOW 04/17/2025 REASON FOR EXAM: EPIDIDYMITIS Right testicular pain. TECHNIQUE: Procedure Code: USTES Modality: US Procedure: TESTICULAR WITH ARTERIAL FLOW COMPARISON: None FINDINGS: RIGHT testicle: 4.4 cm x 3.5 cm x 2.9 cm Homogeneous echotexture. No intratesticular mass. Right epididymis: 0.6 cm 1.5 cm 1.3 cm LEFT testicle: 4.4 cm x 3.2 cm x 2.7 cm Homogeneous echotexture. No intratesticular mass. Left epididymis: 0.9 cm 1.7 cm 1.1 cm there is evidence of a 3 mm x 3 mm x 2 mm epididymal cyst. Other findings: Small bilateral hydroceles. Small right varicocele. US/Testicular with Arterial Flow IMPRESSION: The testicles are unremarkable. Small bilateral hydroceles. Right varicocele. Small left epididymal cyst. Reading Location: [id number]
== END | disposition home or self-care (01) ==
LOC: US 11:05
PROVIDERS: PCP Internal Medicine; Referring Provider Physician Assistant; Visit Provider Physician Assistant
DX: N45.1 Epididymitis (principal)
CPT/HCPCS: 76870; 93976

== ENCOUNTER 2025-05-01 08:57 | Day surgery (SDC) | payer BC, SELFPAY ==
[2025-05-01] VITALS (9 sets, daily range): BP systolic 115–147; BP diastolic 76–100; PULSE 88–108; RESP 16–18; TEMP 36.3–36.9; O2SAT 95–99; BMI 34.2
[2025-05-01] MEDS: Lactated Ringers 1,000 ML 15 ML IV (09:31)
--- NOTE | 2025-05-01 09:40 | PCM.PRE.AN2 ---
ASA Classification* ASA Classification ASA Classification: 2 (AVOID VERSED) Assessment & Plan Anesthesia* Anesthesia Assessment Anesthesia Assessment: Discussed sedation and/or anesthesia options, risks, benefits, and alternatives with patient/parents/legal guardian/POA. Questions invited. The patient/parents/legal guardian/POA seems to understand and agrees to proceed with anesthesia plan. Reviewed the physical assessment, medical history, allergy history and patient home medications list prior to surgery/procedure/anesthetic and documented any changes. Performed airway and anesthesia risk assessments. Anesthesia Type Anesthesia Type: MAC History Source History Obtained from:: Patient and Chart Anesthesia Focused Assessment* Temperature: 97.8 F Pulse Rate: 95 Blood Pressure: 144/97 Respiratory Rate: 18 Pulse Ox: 99 Oxygen Delivery Method: Room Air Airway Assessment Mouth opens: >3 cm Mallampati Score: II Teeth Condition: Intact Neck Range of motion (ROM): Full ROM Labs Anesthesia Preop lab: CBC WBC, (4.4-11.0) 6.8 K/mm3 04/11/25, 10:12 RBC, (4.6-6.2) 5.61 M/mm3 04/11/25, 10:12 Hgb, (13.0-16.5) 16.7 g/dL H 04/11/25, 10:12 Hct, (40-54) 48.1 % 04/11/25, 10:12 Plt Count, (150-450) 313 K/mm3 04/11/25, 10:12 CHEMISTRY Potassium, (3.3-5.1) 4.0 mmol/L 04/11/25, 10:12 Sodium, (133-145) 138 mmol/L 04/11/25, 10:12 BUN, (4-19) 14 mg/dL 04/11/25, 10:12 Creatinine, (0.70-1.20) 0.91 mg/dL 04/11/25, 10:12 Glucose, (70-99) 91 mg/dL 04/11/25, 10:12 COAG Pre-Assessment Diagnosis/Proposed Procedure Planned Operative Procedure(s): EGD Anesthesia History Anesthesia History - line tender flakeboard: Anesthesia History - line tender flakeboard Hx Hospitalization No 04/26/25 12:22 Any Problems With Anesthesia No 04/26/25 12:22 Cholinesterase deficiency No 04/26/25 12:22 You/Your Family Experience No 04/26/25 12:22 fever (hyperthermia) with Relationship Recent Exposure to Contagious No 05/01/25 09:19 Disease Does patient have nerve No 04/26/25 12:22 stimulator Patient instructed to have device shut off --Does patient have Pacemaker No 05/01/25 09:19 or ICD? When Was Last Pacemaker Check QUESTION #4 FULL TEXT: You/Your Family Experience fever (hyperthermia) with Anesthesia Last Oral Intake Last Oral intake: Last Oral Intake NPO since 18:00 05/01/25 09:19 Meds taken in AM with sips of water? Meds patient instructed to take am of surgery PONV PONV - line tender flakeboard: PONV - line tender flakeboard Female No 04/26/25 12:22 HX of Motion Sickness No 04/26/25 12:22 HX of N/V After Surgery No 04/26/25 12:22 Non-Smoker Yes 04/26/25 12:22 Duration of Surgery greater No 04/26/25 12:22 than 60 minutes Number of Risk Factors 1 04/26/25 12:22 PONV Score Low Risk 04/26/25 12:22 Height & Weight Height & Weight: Anesthesia: Height & Weight Height 5 ft 9 in 05/01/25 09:19 Weight: 105 kg 05/01/25 09:19 Body Mass Index (BMI) 34.2 05/01/25 09:19 Respiratory Assessment Respiratory Assessment - line tender flakeboard: Respiratory Tract Infection Hx - line tender flakeboard Hx Respiratory Tract Infection No 04/26/25 12:22 STOP Sleep Apnea STOP Sleep Apnea - line tender flakeboard: STOP Sleep Apnea - line tender flakeboard Hx Hypertension No 04/26/25 12:22 Hx Sleep Apnea No 04/26/25 12:22 CPAP BIPAP Do you snore loudly (louder No 04/26/25 12:22 than talking or can be heard Do you often feel tired/ No 04/26/25 12:22 fatigued/ sleepy during daytime? Has anyone observed you stop No 04/26/25 12:22 breathing during sleep? STOP Results Negative 04/26/25 12:22 QUESTION #5 FULL TEXT : Do you snore loudly (louder than talking or can be heard through closed doors)? Tobacco Use History Tobacco Use History - line tender flakeboard: Tobacco Use History - line tender flakeboard Tobacco Use Smoking Status Never smoker 04/26/25 12:22 Hx Tobacco Use No 04/26/25 12:22 Years Smoking Packs Smoked per Day Smoking Cessation Date was within the last 15 years Hx Smoking Cessation Date Hx Smoking Cessation Counseling Hematologic Medial History Hematologic Hx - line tender flakeboard: Hematologic Medical Hx - laundry folder Hx of Blood Transfusion No 04/26/25 12:22 Hx of Transfusion in last 3 No 04/26/25 12:22 Months Date of Last Transfusion (if within last 3 months) Ever experience any problems No 04/26/25 12:22 with transfusion(s)? Specify any problems Hx of Preganancy in last 3 N/A 04/26/25 12:22 Months Nurse Filling Out Transfusion DSCHRIBER 04/26/25 12:22 & Questions: Date: 04/26/25 04/26/25 12:22 Time: 12:23 04/26/25 12:22 Patient unable to answer at this time (ie. confused, unrespo /Reproduction History /Reproductive History - line tender flakeboard: /Reproductive Hx- line tender flakeboard Hx Now No 04/26/25 12:22 Gestational Age (in weeks): EDC: Hx Hx Para Hx Section SAB No 04/26/25 12:22 Active Medications Active Medications: Current Medications Generic Name Dose Route Start Last Admin Trade Name Freq PRN Reason Stop Dose Admin Lactated Ringer's 1,000 mls @ 15 mls/hr 05/01/25 09:15 05/01/25 09:31 IV 15 mls/hr .Q48H TERA Administration PFSH Medical History (Updated 04/26/25 @ 12:26 by Gayla Dwyer) Alcohol use Gastric reflux Nausea COVID-19 Wears glasses Dietary restriction Non-smoker History of stress test Umbilical hernia Home Medications ?Medication ?Instructions ?Recorded ?Last Taken ?Type omeprazole 40 mg capsule,delayed 40 mg PO QDAY #30 caps 03/26/25 05/01/25 Rx release meloxicam 15 mg tablet 15 mg PO QDAY #30 tabs 04/11/25 05/01/25 Rx Allergy/AdvReac Type Severity Reaction Status Date / Time midazolam (From Versed) AdvReac Mild UNCOMFORTABLE, Verified 05/01/25 09:18 DOESN'T LIKE IT remdesivir AdvReac FAMILY Verified 05/01/25 09:18 ALLERGIC REACTION Family History Other No pertinent family history Surgical History (Updated 04/26/25 @ 12:26 by Gayla Dwyer) S/P cholecystectomy Status post umbilical hernia repair, follow-up exam History of umbilical hernia repair Hx of foot surgery Social History household members: family current occupational status: employed 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 Physical Exam Const alert, oriented x3 and average body habitus Resp normal respiratory effort, normal air movement and clear to auscultation bilaterally Cardio regular rate, regular rhythm, no murmurs and diaphoretic
--- NOTE | 2025-05-01 10:00 | EGD_PTH ---
PATIENT: MEME PHAN LOC: EN U#:[id number] AGE/SX: 35/M ROOM: RE05/01/[address]: Dr. Ernesto Elizondo DO : 1990 BED: DIS: 05/01/2025 SPEC #: [id number] RECD: 05/01/25 13:42 STATUS: LELE REMarilee #: [id number] ELINA: 05/01/25 10:[address]: Ernesto Elizondo DEPT: SURGICAL PATHOLOGY RECD BY: Jong Olson ENTERED: 05/01/25 14:22 SP TYPE: EGD BIOPSY GALINDO DR: Dr. Ct Young MD Tissues: A - Esophagus, NOS B - Duodenum, NOS C - Gastric mucous membrane Procedures: Immunohistochemical Stains Surgery Specimen Level IV HEADER OPERATION: EGD and biopsy PRE-OP DIAGNOSIS: Epigastric pain, nausea TISSUE SUBMITTED: A- Distal esophagus biopsy, B- Duodenum biopsy, C- Gastric body biopsy MICROSCOPIC DIAGNOSIS A. Distal esophagus, biopsy: - Squamous mucosa with reactive changes. - Cardio-oxyntic mucosa negative for goblet cell metaplasia. B. Duodenum, biopsy: - Normal villous architecture with Mary gland hyperplasia and focal gastric mucin cell metaplasia, suggestive of peptic injury. - Negative for increased intraepithelial lymphocytes. C. Gastric body, biopsy: - Oxyntic mucosa with no specific pathologic change. - IHC negative for H. pylori organisms. MICROSCOPIC DESCRIPTION Slides are reviewed. All matched controls reacted appropriately. These tests were developed and their performance characteristics determined by [facility]. They may not have been cleared or approved by the U.S. Food and Drug Administration. The FDA has determined that such clearance or approval is not necessary. The above immunohistochemical markers are viewed by the Pathologist. GROSS DESCRIPTION A. Received in fixative is one container labeled with the patient's name and designated Distal esophagus biopsy. The specimen consists of multiple irregular fragments of mcguire tissue that in aggregate measure 1 x 0.5 x 0.1 cm. The specimen is totally submitted in one cassette. B. Received in fixative is one container labeled with the patient's name and designated Duodenum biopsy. The specimen consists of two irregular fragments of mcguire tissue that measure 0.4 and 0.5 cm. The specimen is totally submitted in one cassette. C. Received in fixative is one container labeled with the patient's name and designated Gastric body biopsy. The specimen consists of two irregular fragments of mcguire tissue that measure 0.3 and 0.5 cm. The specimen is totally submitted in one cassette. SC 05/01/2025 CPT:55166k3,50462
--- NOTE | 2025-05-01 10:09 | PCM.HP.STD ---
HPI - General General Date of Admission: 05/01/25 Date of Service: 05/01/25 Chief Complaint: Epigastric pain HPI Narrative MEME PHAN, is a 35 M who presents [ ]Chief Complaint: Epigastric pain Patient started having epigastric pain while on a work trip at the end of December. Pain is below his sternum. Patient endorsing that the pain is at least happening every other day. It is sometimes alleviated with eating food but other times worse with eating food. He is also having nausea but no vomiting. Symptoms do improve with elevating the head of his bed. In the past patient has been on omeprazole but is not currently taking this. Patient did trial a dairy free diet and sugar-free diet for some time. He did not notice any relief in his symptoms. He is status post cholecystectomy about 1 year ago. He denies any other GI symptoms at this time. [facility] Medical History Alcohol use Gastric reflux Nausea COVID-19 Wears glasses Dietary restriction Non-smoker History of stress test Umbilical hernia Home Medications ?Medication ?Instructions ?Recorded ?Last Taken ?Type omeprazole 40 mg capsule,delayed 40 mg PO QDAY #30 caps 03/26/25 05/01/25 Rx release meloxicam 15 mg tablet 15 mg PO QDAY #30 tabs 04/11/25 05/01/25 Rx Allergy/AdvReac Type Severity Reaction Status Date / Time midazolam (From Versed) AdvReac Mild UNCOMFORTABLE, Verified 05/01/25 09:18 DOESN'T LIKE IT remdesivir AdvReac FAMILY Verified 05/01/25 09:18 ALLERGIC REACTION Family History Other No pertinent family history Surgical History S/P cholecystectomy Status post umbilical hernia repair, follow-up exam History of umbilical hernia repair Hx of foot surgery Social History household members: family current occupational status: employed 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 Smoking Status: Never smoker Electronic Cigarette Use: not used alcohol intake: current alcohol intake frequency: holidays/special occasions only substance use type: does not use what type of physical activity do you participate in: none seatbelt use: always do you feel safe at home: Yes ROS Constitutional Constitutional: Denies fatigue, fever(s), poor appetite, weight gain or weight loss Gastrointestinal Gastrointestinal: Denies belching, bloating, change in bowel habits, change in stool character, chewing difficulty, coffee ground emesis, constipation, cramping, diarrhea, dyspepsia, dysphagia, early satiety, excessive flatus, fecal incontinence, heartburn, hematemesis, hematochezia, hemorrhoids, loose stools, melena, nausea, odynophagia, rectal bleeding, tenesmus, vomiting or weight changes Vital Signs Vital Signs Vital Signs: 05/01/25 09:19 05/01/25 09:19 05/01/25 09:40 Temperature 97.8 F 97.8 F Temperature Source Temporal Pulse Rate 95 95 Respiratory Rate 18 18 Respiratory Pattern Normal Blood Pressure 144/97 H 144/97 H Blood Pressure Mean 112 Blood Pressure Source Monitor Blood Pressure Position Semi-Fowlers Blood Pressure Location Right Arm Pulse Ox 99 99 Oxygen Delivery Method Room Air Room Air Weight Weight: 231 lb 7.766 oz Body Mass Index (BMI) 34.2 Physical Exam Const alert, oriented x3, no apparent distress and healthy appearing General Appearance: cooperative GI normal to inspection, nondistended, normoactive bowel sounds, soft to palpation, non-tender and non-distended Percussion: normal to percussion Rectal Exam: deferred Assessment & Plan Assessment/Plan (1) Epigastric pain: (2) Nausea: (3) Right sided abdominal pain: PLAN: Assessment and Plan Assessment and Plan (1) Epigastric pain: Status: Acute Plan: And is a 35-year-old male patient here today for evaluation of epigastric pain and intermittent nausea since December 2024. Pain is directly below his sternum sometimes after oral intake and sometimes relieved with oral intake. He is having this pain at least every other day. Symptoms have resolved in the past with laying upright. He is status postcholecystectomy about 1 year ago. Patient will be scheduled for EGD however will trial omeprazole 40 mg daily. If symptoms resolve he may cancel his EGD. - EGD, cancel if symptoms resolve - Start omeprazole 40 mg daily - Follow-up as needed (2) Nausea: Status: Acute Comment: OFF AND ON Medications: New omeprazole 40 mg PO QDAY 30 caps 2RF
[2025-05-01] MEDS: Lidocaine 1% (5 ml sdv) 5 ML Vial 10 ML IV (10:25)
--- NOTE | 2025-05-01 10:41 | POSTOP.ANE_ITS ---
Anesthesia: Postop Eval I
--- NOTE | 2025-05-01 10:41 | PCM.POST.ANE ---
Anesthesia: Postop Eval I Current Vital Signs Temperature: 98.4 F Pulse Rate: 105 Blood Pressure: 147/76 Respiratory Rate: 16 Pulse Ox: 96 Oxygen Delivery Method: Room Air Assessment Airway patent: Yes Spontaneous unlabored respirations: Yes Mental status: Awake and Calm nausea: No Vomiting: No Anesthesia Complication: No Fluid Hydration Crystalloid volume administer (ml): 300 Total IV fluid infused: 300 Progress Note Anesthesia document: Postop Eval 1 completed: Yes
--- NOTE | 2025-05-01 10:50 | OP.EGD_ITS ---
Patient Name: Bello Campbell
--- NOTE | 2025-05-01 11:01 | POSTOPAN2_ITS ---
Anesthesia Postop Eval I Sum
--- NOTE | 2025-05-01 11:01 | PCM.POSTANE2 ---
Anesthesia Postop Eval I Sum Postop Eval Completion status Anesthesia document: Postop Eval 1 completed: Yes Anesthesia Postop Eval I Summary Anesthesia Postop Eval I Summary: Anesthesia Postop Eval I: Assessment Summary Airway patent Yes 05/01/25 10:42 [email or web address] Spontaneous unlabored Yes 05/01/25 10:42 [email or web address] respirations Mental status Awake,Calm 05/01/25 10:42 [email or web address] nausea No 05/01/25 10:42 [email or web address] Vomiting No 05/01/25 10:42 [email or web address] Anesthesia Postop Eval I: Fluid Summary Crystalloid volume administer 300 05/01/25 10:42 [email or web address] (ml) Colloids volume administered ( ml) Blood Product volume administered (ml) Total IV fluid infused 300 05/01/25 10:42 [email or web address] Anesthesia Postop Eval I: Summary Notes Anesthesia Complication No 05/01/25 10:42 [email or web address] Anesthesia Complication Comment: Post-operative progress note Anesthesia: Postop Eval II Evaluation Mental status: Awake Pain Level: 0 nausea: No Vomiting: No Complications Anesthesia Complication: No
== END 2025-05-01 11:10 | disposition home or self-care (01) ==
LOC: EN 08:57 → AC 09:02
PROVIDERS: PCP Internal Medicine; Referring Provider Internal Medicine; Visit Provider Internal Medicine Gastroenterology
PROC: 0DJ08ZZ Inspection of Upper Intestinal Tract, Via Natural or Artificial Opening Endoscopic (ICD-10-PCS; CPT 43235; principal; 2025-05-01 09:55)
DX: K21.00 Gastro-esophageal reflux disease with esophagitis, without bleeding (principal); Z79.899 Other long term (current) drug therapy
CPT/HCPCS: 44361; 88305; 88342; J2405